=== PATIENT | female | born 1935 ===

== ENCOUNTER 2017-11-14 11:38 | Inpatient (IN) | payer MEDICARE, BC ==
--- NOTE | 2017-11-14 11:50 | EDM.PDOC ---
ED HPI GENERAL MEDICAL PROBLEM - General Chief Complaint: Lower Extremity Injury/Pain Stated Complaint: [facility] Time Seen by Provider: 11/14/17 11:50 Source of Information: Reports: Patient - History of Present Illness INITIAL COMMENTS - FREE TEXT/NARRATIVE: Patient is brought here today by ambulance from [facility] for an unwitnessed fall. She was found on the ground, she is unable to bear weight and does walk a bit typically. She is grabbing her left hip. Patient has had a history of frequent falls. She has a history of significant dementia, history of heart disease. Patient was given 0.5 mg of Dilaudid in route by ambulance. Treatments STENOGRAPHIC COURT REPORTER: Reports: Other (see below) Other Treatments STENOGRAPHIC COURT REPORTER: dilaudid 0.50 Left Hip Pain Score (Numeric/FACES): 9 - Related Data Allergies Allergy/AdvReac Type Severity Reaction Status Date / Time alendronate sodium Allergy Cannot Verified 11/14/17 11:54 [From Fosamax] Remember atorvastatin [From Lipitor] Allergy Cannot Verified 11/14/17 11:54 Remember fluvastatin [From Lescol] Allergy Cannot Verified 11/14/17 11:54 Remember simvastatin [From Zocor] Allergy Cannot Verified 11/14/17 11:54 Remember Home Meds: Home Meds ARIPiprazole [Abilify] 12.5 mg PO BEDTIME 11/14/17 [History] Acetaminophen 650 mg PO TID PRN 11/14/17 [History] Bisacodyl [Dulcolax] 10 mg RC DAILY PRN 11/14/17 [History] Calcium Carbonate [Antacid] 200 mg PO Q4H PRN 11/14/17 [History] Celecoxib [CeleBREX] 200 mg PO DAILY 11/14/17 [History] Docusate Sodium/Sennosides [Senna Plus] 1 tab PO DAILY PRN 11/14/17 [History] Furosemide 80 mg PO DAILY 11/14/17 [History] Isosorbide Mononitrate [Imdur] 15 mg PO DAILY 11/14/17 [History] traMADol [Ultram] 50 mg PO BID 11/14/17 [History] Review of Systems - Review of Systems Review Of Systems: See Below Constitutional: Reports: No Symptoms Respiratory: Reports: No Symptoms Cardiovascular: Reports: No Symptoms Musculoskeletal: Reports: Other (Apparent left hip pain. Review of systems is very difficult due to patient's dementia.) Skin: Reports: No Symptoms Psychiatric: Reports: Confusion ED EXAM, GENERAL - Physical Exam Exam: See Below Exam Limited By: Other (Dementia) General Appearance: Alert Respiratory/Chest: No Respiratory Distress, Lungs Clear, Normal Breath Sounds, No Accessory Muscle Use Cardiovascular: Normal Peripheral Pulses, No Murmur Peripheral Pulses: 2+: Posterior Tibial (L), Posterior Tibial (R) Extremities: Normal Capillary Refill, Other (Patient's left lower extremity is externally rotated and shorter in length versus the right.) Neurological: Alert, Other (Significant dementia). No: Oriented, No Motor/ Sensory Deficits Skin Exam: Warm, Dry, Intact EKG INTERPRETATION EKG Date: 11/14/17 Time: 12:00 Rhythm: NSR Rate (Beats/Min): 66 EKG Interpretation Comments: Reviewed with Dr. Reyna Course - Vital Signs Last Recorded V/S: Last Vital Signs Temp 98.5 F 11/14/17 11:44 Pulse 66 11/14/17 11:44 Resp 17 11/14/17 11:44 BP 144/67 H 11/14/17 11:44 Pulse Ox 98 11/14/17 11:44 - Orders/Labs/Meds Orders: Active Orders 24 hr Category Date Time Status EKG 12 Lead [EKG Documentation Completion] [RC] STAT Care 11/14/17 11:54 Active CXR [Chest 2V] [CR] Stat Exams 11/14/17 11:54 Taken Hip Min 1V w Pelvis Lt [CR] Stat Exams 11/14/17 11:54 Taken Sodium Chloride 0.9% [Normal Saline] 1,000 ml Med 11/14/17 11:56 Active IV ONETIME Medication Orders Sodium Chloride (Normal Saline) 1,000 mls @ 250 mls/hr IV ONETIME ONE Stop: 11/14/17 15:55 Last Admin: 11/14/17 12:06 Dose: 250 mls/hr Labs: Laboratory Tests 11/14/17 11/14/17 11/14/17 Range/Units 12:27 12:27 12:27 WBC 9.28 (3.98-10.04) K/mm3 RBC 4.64 (3.98-5.22) M/mm3 Hgb 13.6 (11.2-15.7) gm/L Hct 42.2 (34.1-44.9) % MCV 90.9 (79.4-94.8) fl MCH 29.3 (25.6-32.2) pg MCHC 32.2 (32.2-35.5) g/dl RDW Std Deviation 46.7 H (36.4-46.3) fL Plt Count 246 (182-369) K/mm3 MPV 10.6 (9.4-12.3) fl Neutrophils % (Manual) 71 H (40-60) % Band Neutrophils % 0 (0-10) % Lymphocytes % (Manual) 22 (20-40) % Atypical Lymphs % 0 % Monocytes % (Manual) 5 (2-10) % Eosinophils % (Manual) 0 L (0.7-5.8) % Basophils % (Manual) 2 H (0.1-1.2) Platelet Estimate Adequate RBC Morph Comment Normal Sodium 144 (136-145) mEq/L Potassium 3.6 (3.5-5.1) mEq/L Chloride 107 (98-107) mEq/L Carbon Dioxide 27 (21-32) mEq/L Anion Gap 13.6 (5-15) BUN 27 H (7-18) mg/dL Creatinine 0.7 (0.55-1.02) mg/dL Est Cr Clr Drug Dosing 49.65 mL/min Estimated GFR (MDRD) > 60 (>60) mL/min BUN/Creatinine Ratio 38.6 H (14-18) Glucose 141 H (83-115) mg/dL Calcium 9.6 (8.5-10.1) mg/dL Total Bilirubin 0.8 (0.2-1.0) mg/dL AST 28 (15-37) U/L ALT 35 (14-59) U/L Alkaline Phosphatase 72 (46-116) U/L Total Protein 7.2 (6.4-8.2) g/dl Albumin 4.1 (3.4-5.0) g/dl Globulin 3.1 gm/dL Albumin/Globulin Ratio 1.3 (1-2) Blood Type A POSITIVE Gel Antibody Screen Negative Meds: Medications Generic Name Dose Route Start Last Admin Trade Name Freq PRN Reason Stop Dose Admin Sodium Chloride 1,000 mls @ 250 mls/hr 11/14/17 11:56 11/14/17 12:06 Normal Saline IV 11/14/17 15:55 250 mls/hr ONETIME ONE Administration Discontinued Medications Generic Name Dose Route Start Last Admin Trade Name Mina PRN Reason Stop Dose Admin Hydromorphone HCl 0.5 mg 11/14/17 11:56 11/14/17 12:04 Dilaudid IVPUSH 11/14/17 11:57 0.5 mg ONETIME ONE Administration - Re-Assessments/Exams Free Text/Narrative Re-Assessment/Exam: Patient with acute left hip fracture. I did explain this to her, however her dementia is quite significant so daughter was contacted as well. EKG is normal sinus rhythm. Chest x-ray demonstrates no obvious infiltrates, official radiology report is pending. CBC/CMP are unremarkable. Patient is A positive blood type. Discussed with Dr. Romo, we will consult in the hospital and discussed with her options at that time. With patient's core morbidities of dementia and CAD patient will be admitted to hospitalist service, discussed with Dr. Browne. Discussed on the phone with patient's daughter, Salome, she can be reached at . Per patient's daughter and records from [facility] she is DNR status. 11/14/17 13:30 11/14/17 13:33 11/14/17 13:42 Departure - Departure Time of Disposition: 13:41 Disposition: Admitted As Inpatient 67 Condition: Fair Clinical Impression: Hip fracture, left Qualifiers: Encounter type: initial encounter Fracture type: closed Qualified Code(s): S72.002A - Fracture of unspecified part of neck of left femur, initial encounter for closed fracture CAD (coronary artery disease) Qualifiers: Coronary Disease-Associated Artery/Lesion type: [place] artery [place] vs. transplanted heart: [place] heart Associated angina: without angina Qualified Code(s): I25.10 - Atherosclerotic heart disease of [place] coronary artery without angina pectoris Dementia Qualifiers: Dementia type: unspecified type - Discharge Information Referrals: PCP,None [Primary Care Provider] - Forms: ED Department Discharge - My Orders Last 24 Hours: My Active Orders 11/14/17 11:54 EKG 12 Lead [EKG Documentation Completion] [RC] STAT CXR [Chest 2V] [CR] Stat Hip Min 1V w Pelvis Lt [CR] Stat 11/14/17 11:56 Sodium Chloride 0.9% [Normal Saline] 1,000 ml IV ONETIME - Assessment/Plan Last 24 Hours: My Active Orders 11/14/17 11:54 EKG 12 Lead [EKG Documentation Completion] [RC] STAT CXR [Chest 2V] [CR] Stat Hip Min 1V w Pelvis Lt [CR] Stat 11/14/17 11:56 Sodium Chloride 0.9% [Normal Saline] 1,000 ml IV ONETIME
[2017-11-14] MEDS ORDERED: Sodium Chloride 0.9% 1,000 ML IV ONE (11:56)
[2017-11-14] MEDS ORDERED: HYDROmorphone 0.5 MG/0.5 ML Syringe IVPUSH ONE (11:56)
--- NOTE | 2017-11-14 14:27 | CR ---
Pelvis and left hip: AP view of the pelvis was obtained as well as lateral view of the left hip. Varus angulated intertrochanteric fracture is seen within the left hip. Joint space narrowing is seen superiorly within both hips. Bony structures are osteopenic. No other acute abnormality is seen. Impression: 1. Left hip fracture as described above. 2. Osteopenia and degenerative change as noted above. Diagnostic code #3
--- NOTE | 2017-11-14 14:27 | CR ---
Chest: AP view of the chest was obtained as well as lateral study. Comparison: No previous study. Heart is enlarged. Lungs are clear. Kyphoscoliosis is present within the spine. Degenerative change is noted within the spine. Osteopenia is seen. Impression: 1. Multiple findings as noted above. Nothing acute is seen on two-view chest x-ray. Diagnostic code #2
[2017-11-14] MEDS ORDERED: Acetaminophen 325 MG Tab PO PRN (15:51)
[2017-11-14] MEDS ORDERED: Morphine 2 MG/ML Syringe IVPUSH PRN (15:51)
[2017-11-14] MEDS ORDERED: Bisacodyl 5 MG Tab PO PRN (15:51)
[2017-11-14] MEDS ORDERED: Docusate Sodium 100 MG Cap PO PRN (15:51)
[2017-11-14] MEDS ORDERED: Albuterol/Ipratropium 3.0-0.5 MG/3 ML Neb Soln NEB PRN (15:51)
[2017-11-14] MEDS ORDERED: Polyethylene Glycol 3350 Powder 17 GM Packet PO PRN (15:51)
[2017-11-14] MEDS ORDERED: Ondansetron 4 MG/2 ML SDV IV PRN (15:51)
[2017-11-14] MEDS ORDERED: Ondansetron 4 MG Tab.DIS PO PRN (15:51)
[2017-11-14] MEDS ORDERED: Sodium Chloride 0.9% 1,000 ML IV SCH (16:00)
--- NOTE | 2017-11-14 16:00 | PCM.HP ---
H&P History of Present Illness - General Date of Service: 11/14/17 Admit Problem/Dx: Admission Diagnosis/Problem Admission Diagnosis/Problem Hip fracture requiring operative repair Source of Information: Correction Records, Old Records, Provider, RN, RN Notes Reviewed History Limitations: Reports: Altered Mental Status (Dementia) - History of Present Illness Initial Comments - Free Text/Narative: Lindsay Diaz is an 82 yo female who resides to ED today (11/14/17) via ambulance from [facility]. Patient had an unwitnessed fall and is now unable to bear weight. She does typically walk around the [facility], however now she is grabbing her left hip pain. No history of recurrent falls. She has history of dementia and heart disease. EMS gave 0.5 mg Dilaudid prior to ED arrival. In the ER a 12-lead was obtained showing normal sinus rhythm at 66 beats or minute, interpreted by the ED provider. Temp is 98.5. Pulse 66. Respirations 17. Blood pressure 144/67. Pulse ox 98 percent on room air. Labs were obtained: FVC is normal at 9.28. Hemoglobin normal at 13.6. Hematocrit 42.2. Platelets normal at 246,000. Neutrophils are elevated at 71%. There is no bandemia. She was normocytic. Sodium was normal at 144. Potassium 3.6. Chloride 107. Carbon dioxide 27. Anion gap 13.6. BUN is elevated at 27. Creatinine 0.7. EGFR greater than 60. Glucose was elevated at 141. Calcium 9.6. Bilirubin 0.8. Liver enzymes looked good with AST at 28, ALT at 35, alkaline phosphatase 72. Albumin was good at 4.1. She was typed and screened with a blood type A positive gel antibody screen negative. Hip x-ray was obtained and interpreted by Dr. De Los Santos as varus angulated intertrochanteric fracture is seen within the left hip. Joint space narrowing is seen superiorly within both hips. Only structures are osteopenic. No other acute abnormalities seen. Dr. Romo was consulted in the ED. He requested patient be admitted to the hospitalist service and he will see the patient on the floor. She does have a daughter who did not come in but can be reached via cell phone at [phone]. She carries a history of CAD, osteoarthritis, Alzheimer's dementia, bipolar disorder, generalized muscle weakness, lower extremity edema, constipation, and insomnia. She is a DNR. This is confirmed with [facility] records and the patient's daughter. She subsequently admitted to the medical floor. Left Hip Pain Score (Numeric/FACES): 9 - Related Data Allergies/Adverse Reactions: Allergies Allergy/AdvReac Type Severity Reaction Status Date / Time alendronate sodium Allergy Cannot Verified 11/14/17 11:54 [From Fosamax] Remember atorvastatin [From Lipitor] Allergy Cannot Verified 11/14/17 11:54 Remember fluvastatin [From Lescol] Allergy Cannot Verified 11/14/17 11:54 Remember simvastatin [From Zocor] Allergy Cannot Verified 11/14/17 11:54 Remember Home Medications: Home Meds ARIPiprazole [Abilify] 12.5 mg PO BEDTIME 11/14/17 [History] Acetaminophen 650 mg PO TID PRN 11/14/17 [History] Bisacodyl [Dulcolax] 10 mg RC DAILY PRN 11/14/17 [History] Celecoxib [CeleBREX] 200 mg PO DAILY 11/14/17 [History] Docusate Sodium/Sennosides [Senna Plus] 1 tab PO DAILY PRN 11/14/17 [History] Furosemide 80 mg PO DAILY 11/14/17 [History] Isosorbide Mononitrate [Imdur] 15 mg PO DAILY 11/14/17 [History] Mag Hydrox/Al Hydrox/Simeth [Maalox Maximum Strength Susp] 15 ml PO Q4HR PRN 08/22 [History] traMADol [Ultram] 50 mg PO BID 11/14/17 [History] Past Medical History Cardiovascular History: Reports: Other (See Below) Other Cardiovascular History: atherpsclerotic heart disease of [place] coronary artery Musculoskeletal History: Reports: Osteoarthritis, Other (See Below) Other Musculoskeletal History: chronic right foot pain, generalized muscle weakness Neurological History: Reports: Alzheimers Disease Psychiatric History: Reports: Bipolar, Dementia, Other (See Below) Other Psychiatric History: insomnia, personality disorder Social & Family History - Tobacco Use Smoking Status *Q: Never Smoker Second Hand Smoke Exposure: No - Caffeine Use Caffeine Use: Reports: Coffee - Recreational Drug Use Recreational Drug Use: No H&P Review of Systems - Review of Systems: Review Of Systems: Unable To Obtain Free Text/Narrative: Patient is severely demented and ROS is unable to be obtained with any degree of certainty. In reviewing ER notes She has baseline severe confusion and left hip pain. Exam - Exam Exam: See Below - Vital Signs Vital Signs: Last Vital Signs Temp 99.3 F 11/14/17 15:46 Pulse 67 11/14/17 15:46 Resp 17 11/14/17 15:46 BP 118/60 11/14/17 15:46 Pulse Ox 95 11/14/17 15:46 Weight: 110 lb - Exam Quality Assessment: DVT Prophylaxis General: Alert, Cooperative. No: Mild Distress HEENT: PERRLA, Hearing Intact, Mucosa Moist & [place], Nares Patent, Normal Nasal Septum, Posterior Pharynx Clear, Conjunctiva Clear, EOMI, EACs Clear, TMs Clear Neck: Supple, Trachea Midline. No: JVD, Thyromegaly Lungs: Clear to Auscultation, Normal Respiratory Effort Cardiovascular: Regular Rate, Regular Rhythm GI/Abdominal Exam: Normal Bowel Sounds, Soft, Non-Tender, No Organomegaly, No Distention, No Abnormal Bruit, No Mass, Pelvis Stable (Female) Exam: Deferred Rectal (Female) Exam: Deferred Back Exam: Normal Inspection, Decreased Range of Motion Extremities: Normal Capillary Refill, Pedal Edema (1+ bilateral ), Leg Pain ( left hip), Limited Range of Motion, Other (left leg is shortened and externally rotated. ) Peripheral Pulses: 2+: Radial (L), Radial (R), Posterior Tibial (L), Posterior Tibial (R), Dorsalis Pedis (L), Dorsalis Pedis (R) Skin: Warm, Dry, Intact Neuro Extensive - Mental Status: Alert, Other (significanty dimentia ). No: Oriented x3, Normal Cognition, Memory Intact Neuro Extensive - Motor, Sensory, Reflexes: CN II-XII Intact (grossly ), Normal Gait, Abnormal Gait Psychiatric: Alert - Patient Data Result Diagrams: 11/14/17 12:27 11/14/17 12:27 *Q Meaningful Use (ADM) - VTE *Q VTE Criteria *Q: - Stroke *Q Stroke Criteria *Q: - AMI *Q AMI Criteria *Q: - Problem List (1) Hip fracture, left SNOMED Code(s): 599790626 ICD Code: S72.002A - FRACTURE OF UNSP PART OF NECK OF LEFT FEMUR, INIT Status: Acute Priority: High Current Visit: Yes Qualifiers: Encounter type: initial encounter Fracture type: closed Qualified Code(s) : S72.002A - Fracture of unspecified part of neck of left femur, initial encounter for closed fracture (2) Dementia SNOMED Code(s): 98849176 ICD Code: F03.90 - UNSPECIFIED DEMENTIA WITHOUT BEHAVIORAL DISTURBANCE Status: Chronic Priority: High Current Visit: Yes Qualifiers: Dementia type: Alzheimer's disease Alzheimer's disease onset: unspecified onset Dementia behavioral disturbance: without behavioral disturbance Qualified Code(s): G30.9 - Alzheimer's disease, unspecified; F02.80 - Dementia in other diseases classified elsewhere without behavioral disturbance; F02.80 - Dementia in other diseases classified elsewhere without behavioral disturbance; F02.80 - Dementia in other diseases classified elsewhere without behavioral disturbance (3) Insomnia SNOMED Code(s): 384739096 ICD Code: G47.00 - INSOMNIA, UNSPECIFIED Status: Chronic Priority: Low Current Visit: No Qualifiers: Insomnia type: unspecified Qualified Code(s): G47.00 - Insomnia, unspecified (4) Personality disorder SNOMED Code(s): 88002949 ICD Code: F60.9 - PERSONALITY DISORDER, UNSPECIFIED Status: Chronic Priority: Low Current Visit: No (5) Bipolar disorder SNOMED Code(s): 29188933 ICD Code: F31.9 - BIPOLAR DISORDER, UNSPECIFIED Status: Chronic Priority : Low Current Visit: No Qualifiers: Active/Remission status: remission status unspecified Qualified Code(s): F31.9 - Bipolar disorder, unspecified (6) Osteoarthritis SNOMED Code(s): 726314086 ICD Code: M19.90 - UNSPECIFIED OSTEOARTHRITIS, UNSPECIFIED SITE Status: Chronic Priority: Low Current Visit: No Qualifiers: Osteoarthritis location: hip Osteoarthritis type: primary Laterality: bilateral Qualified Code(s): M16.0 - Bilateral primary osteoarthritis of hip (7) Lower extremity edema SNOMED Code(s): 780104392 ICD Code: R60.0 - LOCALIZED EDEMA Status: Chronic Priority: Medium Current Visit: Yes (8) CAD (coronary artery disease) SNOMED Code(s): 45475724 ICD Code: I25.10 - ATHSCL HEART DISEASE OF [place] CORONARY ARTERY W/O ANG PCTRS Status: Chronic Priority: Low Current Visit: No Qualifiers: Coronary Disease-Associated Artery/Lesion type: [place] artery [place] vs. transplanted heart: [place] heart Associated angina: without angina Qualified Code(s): I25.10 - Atherosclerotic heart disease of [place] coronary artery without angina pectoris Problem List Initiated/Reviewed/Updated: Yes Orders Last 24hrs: Active Orders 24 hr Category Date Time Status Antiembolic Devices [RC] PER UNIT ROUTINE Care 11/14/17 15:54 Ordered Bedrest Bathroom Privileges [RC] ASDIRECTED Care 11/14/17 15:51 Ordered Height and Weight [RC] DAILY Care 11/14/17 15:51 Ordered Intake and Output [RC] QSHIFT Care 11/14/17 15:52 Ordered Notify Provider Consults [RC] ASDIRECTED Care 11/14/17 15:56 Ordered Oxygen Therapy [RC] PRN Care 11/14/17 15:51 Ordered Pulse Oximetry [RC] PRN Care 11/14/17 15:52 Ordered RT Aerosol Therapy [RC] ASDIRECTED Care 11/14/17 15:56 Ordered VTE/DVT Education [RC] PER UNIT ROUTINE Care 11/14/17 15:51 Ordered Vital Signs [RC] Q4H Care 11/14/17 15:51 Ordered Consult to Case Management [CONS] Routine Cons 11/14/17 15:51 Ordered Consult to Physician [CONS] Routine Cons 11/14/17 15:51 Ordered Consult to Public Address Announcer [CONS] Routine Cons 11/14/17 15:51 Ordered Consult to Spiritual Care [CONS] Routine Cons 11/14/17 15:51 Ordered OT Evaluation and Treatment [CONS] Routine Cons 11/14/17 15:51 Ordered PT Evaluation and Treatment [CONS] Routine Cons 11/14/17 15:51 Ordered NPO Now [Nothing per Oral Now Diet] [DIET] Diet 11/14/17 Dinner Ordered Acetaminophen [Tylenol] Med 11/14/17 15:51 Ordered 650 mg PO Q4H PRN Acetaminophen/oxyCODONE [Percocet 325-5 MG] Med 11/14/17 15:51 Ordered 1 tab PO Q4H PRN Albuterol/Ipratropium [DuoNeb 3.0-0.5 MG/3 ML] Med 11/14/17 15:51 Ordered 3 ml NEB Q4H PRN Bisacodyl [Dulcolax] Med 11/14/17 15:51 Ordered 5 mg PO DAILY PRN Docusate Sodium [Colace] Med 11/14/17 15:51 Ordered 100 mg PO BID PRN Docusate Sodium/Sennosides [Senna Plus] Med 11/14/17 15:51 Ordered 1 tab PO BID PRN Morphine Med 11/14/17 15:51 Ordered 2 mg IVPUSH Q2H PRN Ondansetron [Zofran ODT] Med 11/14/17 15:51 Ordered 4 mg PO Q6H PRN Ondansetron [Zofran] Med 11/14/17 15:51 Ordered 4 mg IV Q6H PRN Polyethylene Glycol 3350 [MiraLAX] Med 11/14/17 15:51 Ordered 17 gm PO DAILY PRN Sodium Chloride 0.9% [Normal Saline] 1,000 ml Med 11/14/17 16:00 Ordered IV ASDIRECTED Sequential Compression Device [OM.PC] Per Unit Routine Oth 11/14/17 15:52 Ordered Resuscitation Status Routine Resus Stat 11/14/17 15:51 Ordered Medication Orders Acetaminophen (Tylenol) 650 mg PO Q4H PRN PRN Reason: Pain (Mild 1-3)/fever Albuterol/Ipratropium (Duoneb 3.0-0.5 Mg/3 Ml) 3 ml NEB Q4H PRN PRN Reason: Shortness Of Breath/wheezing Bisacodyl (Dulcolax) 5 mg PO DAILY PRN PRN Reason: Constipation Docusate Sodium (Colace) 100 mg PO BID PRN PRN Reason: Constipation Sodium Chloride (Normal Saline) 1,000 mls @ 75 mls/hr IV ASDIRECTED [facility] Stop: 11/15/17 05:19 Morphine Sulfate (Morphine) 2 mg IVPUSH Q2H PRN PRN Reason: Pain (severe 7-10) Stop: 11/15/17 15:54 Ondansetron HCl (Zofran Odt) 4 mg PO Q6H PRN PRN Reason: nausea, able to take PO Ondansetron HCl (Zofran) 4 mg IV Q6H PRN PRN Reason: Nausea/Vomiting Oxycodone/Acetaminophen (Percocet 325-5 Mg) 1 tab PO Q4H PRN PRN Reason: Pain (moderate 4-6) Polyethylene Glycol (Miralax) 17 gm PO DAILY PRN PRN Reason: Constipation Senna/Docusate Sodium (Senna Plus) 1 tab PO BID PRN PRN Reason: Constipation Assessment/Plan Comment:: I/P Acute: Varus angulated intertrochanteric fracture within the left hip - 2/2 unwitnessed fall at [facility] - Fall Precautions - hx/o recurrent falls - She is reportedly somewhat ambulatory at [facility] - Planned surgical correction by Ortho (Dr. Vieira) tomorrow (11/15/17) - Pain medication as ordered Pre-Operative Risk Stratification - Risk factors: Advanced dementia, CAD, Bipolar disorder - METS < 4, SVS, Ekg /CXR: benign - Physical exam fairly benign - No recent cardiac or lung eval in chart - No active cardiac or lung disease - Non-smoker, Non-drinker - Based on the data provided, the patient carries mild-moderate cardiac risk for intermediate surgical risk Chronic: CAD Alzheimer dementia -stable Bipolar disorder - stable OA Insomnia Personality disorder - stable Lower extremity edema - bumex Generalized muscle weakness Plan: Routine AM labs PT/PTT PT/OT consult IS q2 awake after surgery if patient can complete PPI for GI ppx DVT ppx and Post-operative Pain Management: as per primary team Code status: DNR Her PCP is Dr. Jama at [facility] in [place]
[2017-11-14] MEDS ORDERED: Furosemide 40 MG/4 ML VIAL IVPUSH ONE (16:16)
--- NOTE | 2017-11-14 17:20 | PCM.PREANE ---
Preanesthetic Assessment - Anesthesia/Transfusion/Family Hx Anesthesia History: Prior Anesthesia Without Reaction Family History of Anesthesia Reaction: No Transfusion History: No Prior Transfusion(s) - Review of Systems General: No Symptoms Pulmonary: No Symptoms Cardiovascular: No Symptoms Gastrointestinal: No Symptoms Neurological: Confusion, Difficulty Walking (falling), Weakness Other: Reports: None - Physical Assessment NPO Status Date: 11/14/17 NPO Status Time: 17:00 Pulse: 67 O2 Sat by Pulse Oximetry: 95 Respiratory Rate: 17 Blood Pressure: 118/60 Temperature: 37.4 C Vital Signs: Last Vital Signs Temp 37.4 C 11/14/17 15:46 Pulse 67 11/14/17 15:46 Resp 17 11/14/17 15:46 BP 118/60 11/14/17 15:46 Pulse Ox 95 11/14/17 15:51 Height: 1.6 m Weight: 49.895 kg ASA Class: 3 Mental Status: Other (dementia) Airway Class: Mallampati = 2 Dentition: Reports: Dentures Thyro-Mental Finger Breadths: 2 Mouth Opening Finger Breadths: 2 ROM/Head Extension: Limited/Partial Lungs: Clear to Auscultation, Normal Respiratory Effort Cardiovascular: Regular Rhythm, Irregular Rhythm - Lab Values: Laboratory Last Values WBC 9.28 K/mm3 (3.98-10.04) 11/14/17 12:27 RBC 4.64 M/mm3 (3.98-5.22) 11/14/17 12:27 Hgb 13.6 gm/L (11.2-15.7) 11/14/17 12:27 Hct 42.2 % (34.1-44.9) 11/14/17 12:27 MCV 90.9 fl (79.4-94.8) 11/14/17 12:27 MCH 29.3 pg (25.6-32.2) 11/14/17 12:27 MCHC 32.2 g/dl (32.2-35.5) 11/14/17 12:27 RDW Std Deviation 46.7 fL (36.4-46.3) H 11/14/17 12:27 Plt Count 246 K/mm3 (182-369) 11/14/17 12:27 MPV 10.6 fl (9.4-12.3) 11/14/17 12:27 Neutrophils % (Manual) 71 % (40-60) H 11/14/17 12:27 Band Neutrophils % 0 % (0-10) 11/14/17 12:27 Lymphocytes % (Manual) 22 % (20-40) 11/14/17 12:27 Atypical Lymphs % 0 % 11/14/17 12:27 Monocytes % (Manual) 5 % (2-10) 11/14/17 12:27 Eosinophils % (Manual) 0 % (0.7-5.8) L 11/14/17 12:27 Basophils % (Manual) 2 (0.1-1.2) H 11/14/17 12:27 Platelet Estimate Adequate 11/14/17 12: RBC Morph Comment Normal 11/14/17 12:27 Sodium 144 mEq/L (136-145) 11/14/17 12:27 Potassium 3.6 mEq/L (3.5-5.1) 11/14/17 12:27 Chloride 107 mEq/L (98-107) 11/14/17 12:27 Carbon Dioxide 27 mEq/L (21-32) 11/14/17 12:27 Anion Gap 13.6 (5-15) 11/14/17 12:27 BUN 27 mg/dL (7-18) H 11/14/17 12:27 Creatinine 0.7 mg/dL (0.55-1.02) 11/14/17 12:27 Est Cr Clr Drug Dosing 49.65 mL/min 11/14/17 12:27 Estimated GFR (MDRD) > 60 mL/min (>60) 11/14/17 12:27 BUN/Creatinine Ratio 38.6 (14-18) H 11/14/17 12:27 Glucose 141 mg/dL (83-115) H 11/14/17 12:27 Calcium 9.6 mg/dL (8.5-10.1) 11/14/17 12:27 Total Bilirubin 0.8 mg/dL (0.2-1.0) 11/14/17 12:27 AST 28 U/L (15-37) 11/14/17 12:27 ALT 35 U/L (14-59) 11/14/17 12:27 Alkaline Phosphatase 72 U/L (46-116) 11/14/17 12:27 Total Protein 7.2 g/dl (6.4-8.2) 11/14/17 12:27 Albumin 4.1 g/dl (3.4-5.0) 11/14/17 12:27 Globulin 3.1 gm/dL 11/14/17 12:27 Albumin/Globulin Ratio 1.3 (1-2) 11/14/17 12:27 Blood Type A POSITIVE 11/14/17 12:27 Gel Antibody Screen Negative 11/14/17 12:27 - Imaging/EKG Impressions: EKG 11/14/2017 AFib rate 64 - 69 - Allergies Allergies/Adverse Reactions: Allergies Allergy/AdvReac Type Severity Reaction Status Date / Time alendronate sodium Allergy Cannot Verified 11/14/17 11:54 [From Fosamax] Remember atorvastatin [From Lipitor] Allergy Cannot Verified 11/14/17 11:54 Remember fluvastatin [From Lescol] Allergy Cannot Verified 11/14/17 11:54 Remember simvastatin [From Zocor] Allergy Cannot Verified 11/14/17 11:54 Remember - Anesthesia Plan Pre-Op Medication Ordered: None - Acknowledgements Anesthesia Type Planned: Spinal Pt an Appropriate Candidate for the Planned Anesthesia: Yes Alternatives and Risks of Anesthesia Discussed w Pt/Guardian: Yes Pt/Guardian Understands and Agrees with Anesthesia Plan: Yes PreAnesthesia Questionnaire Cardiovascular History: Reports: Other (See Below) Other Cardiovascular History: 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 Musculoskeletal History: Reports: Osteoarthritis, Other (See Below) Other Musculoskeletal History: chronic right foot pain, generalized muscle weakness Neurological History: Reports: Alzheimers Disease Psychiatric History: Reports: Bipolar, Dementia, Other (See Below) Other Psychiatric History: insomnia, personality disorder - SUBSTANCE USE Smoking Status *Q: Never Smoker Tobacco Use Within Last Twelve Months: No Second Hand Smoke Exposure: No Recreational Drug Use History: No - HOME MEDS Home Medications: Home Meds ARIPiprazole [Abilify] 12.5 mg PO BEDTIME 11/14/17 [History] Acetaminophen 650 mg PO TID PRN 11/14/17 [History] Bisacodyl [Dulcolax] 10 mg RC DAILY PRN 11/14/17 [History] Calcium Carbonate [Antacid] 200 mg PO Q4H PRN 11/14/17 [History] Celecoxib [CeleBREX] 200 mg PO DAILY 11/14/17 [History] Docusate Sodium/Sennosides [Senna Plus] 1 tab PO DAILY PRN 11/14/17 [History] Furosemide 80 mg PO DAILY 11/14/17 [History] Isosorbide Mononitrate [Imdur] 15 mg PO DAILY 11/14/17 [History] traMADol [Ultram] 50 mg PO BID 11/14/17 [History] - CURRENT (IN HOUSE) MEDS Current Meds: Current Medications Acetaminophen (Tylenol) 650 mg PO Q4H PRN PRN Reason: Pain (Mild 1-3)/fever Albuterol/Ipratropium (Duoneb 3.0-0.5 Mg/3 Ml) 3 ml NEB Q4H PRN PRN Reason: Shortness Of Breath/wheezing Bisacodyl (Dulcolax) 5 mg PO DAILY PRN PRN Reason: Constipation Docusate Sodium (Colace) 100 mg PO BID PRN PRN Reason: Constipation Morphine Sulfate (Morphine) 2 mg IVPUSH Q2H PRN PRN Reason: Pain (severe 7-10) Stop: 11/15/17 15:54 Ondansetron HCl (Zofran Odt) 4 mg PO Q6H PRN PRN Reason: nausea, able to take PO Ondansetron HCl (Zofran) 4 mg IV Q6H PRN PRN Reason: Nausea/Vomiting Oxycodone/Acetaminophen (Percocet 325-5 Mg) 1 tab PO Q4H PRN PRN Reason: Pain (moderate 4-6) Polyethylene Glycol (Miralax) 17 gm PO DAILY PRN PRN Reason: Constipation Senna/Docusate Sodium (Senna Plus) 1 tab PO BID PRN PRN Reason: Constipation Discontinued Medications Furosemide (Lasix) 40 mg IVPUSH NOW ONE Stop: 11/14/17 16:17 Last Admin: 11/14/17 16:52 Dose: 40 mg Hydromorphone HCl (Dilaudid) 0.5 mg IVPUSH ONETIME ONE Stop: 11/14/17 11:57 Last Admin: 11/14/17 12:04 Dose: 0.5 mg Sodium Chloride (Normal Saline) 1,000 mls @ 250 mls/hr IV ONETIME ONE Stop: 11/14/17 15:55 Last Admin: 11/14/17 12:06 Dose: 250 mls/hr Sodium Chloride (Normal Saline) 1,000 mls @ 75 mls/hr IV ASDIRECTED [facility] Stop: 11/15/17 05:19
[2017-11-14] MEDS: Acetaminophen/oxyCODONE 325-5 MG Tab PO PRN (21:37)
[2017-11-14] MEDS: traMADol 50 MG Tab PO SCH (21:39)
[2017-11-14] MEDS: Famotidine 20 MG Tab PO SCH (21:40)
[2017-11-14] MEDS: ARIPiprazole 10 MG Tab PO SCH (21:40)
[2017-11-14] MEDS: Mupirocin Oint 22 GM Tube SCH (22:17)
[2017-11-15] MEDS: Bumetanide 1 MG/4 ML MDV IVPUSH SCH ×2 (06:15→09:20)
--- NOTE | 2017-11-15 06:48 | CONS ---
CONSULTING PHYSICIAN: Sedrick Vieira MD DATE OF CONSULTATION: 11/14/2017 HISTORY OF PRESENT ILLNESS: This is the evaluation of a severe left hip pain secondary to a fall causing a fracture. The patient is seen through the emergency room, was found to have severe pain with external rotation of the left hip. The patient was brought to the emergency room by ambulance from the [facility]. The fall was not seen, and the patient had severe pain with any type of ability to try to walk or move the leg itself. She does have a history of frequent falls. ALLERGIES: To alendronate, atorvastatin or Lipitor, Lescol, and Zocor. PAST MEDICAL HISTORY: The patient has a history of osteoporosis. She also notes a history of confusion at times. MEDICATIONS: The patient has been on a pain medicine of Ultram and also has been on the furosemide mg and anti-inflammatory Celebrex for the arthritis-type problems. REVIEW OF SYSTEMS: HEAD, EYES, EARS, NOSE, AND THROAT: The patient shows no indication of upper respiratory infection or signs of infection. NECK: Supple. CHEST: Clear. COR: Shows no changes at this point. MUSCULOSKELETAL: Shows positive severe pain of the left hip. SKIN: Intact. PHYSICAL EXAMINATION: GENERAL: On admission, the patient is a well-developed well-nourished 82-year- old female with dementia. She is fairly alert on direct examination. HEAD, EYES, EARS, NOSE AND THROAT: Normocephalic. NECK: Supple. CHEST: Clear. COR: Regular rate. ABDOMEN: Soft. : Intact. MUSCULOSKELETAL: Examination of the left hip reveals a severe pain or any type of movement of the left hip itself with external rotation of the hip noted and shortening. NEUROLOGICAL: The patient shows no specific motor or sensory deficits distally. IMAGING: The x-rays showed an intertrochanteric fracture of the left hip, moderately displaced. PLAN: 1. Plan will be for the patient to be scheduled for admission medically to undergo medical evaluation and stabilization. 2. Schedule for an open surgery, an open reduction and internal fixation of the left hip fracture with a gamma nail. MMHARRY /[id number]
[2017-11-15] MEDS: Sodium Chloride 0.9% 1,000 ML IV SCH (08:48)
[2017-11-15] MEDS: Potassium Chloride 10 MEQ in Premix Bag 1 BAG IV SCH ×5 (08:48→16:49)
[2017-11-15] MEDS ORDERED: Bumetanide 1 MG/4 ML MDV IVPUSH SCH (09:00)
[2017-11-15] MEDS: Celecoxib 100 MG Cap PO SCH (09:19)
[2017-11-15] MEDS: Famotidine 20 MG Tab PO SCH ×2 (09:19→20:08)
[2017-11-15] MEDS: traMADol 50 MG Tab PO SCH ×2 (09:20→20:06)
[2017-11-15] MEDS: Mupirocin Oint 22 GM Tube SCH ×2 (10:00→20:09)
--- NOTE | 2017-11-15 10:03 | PCM.PN ---
- General Info Date of Service: 11/15/17 Admission Dx/Problem (Free Text): Admission Diagnosis/Problem Admission Diagnosis/Problem Hip fracture requiring operative repair Lindsay is seen this morning. She is pleasantly confused. I introduce myself and she says "What is your name" with lots of jibberish talk. She is resting comfortably. Denies that her left hip is causing pain or discomfort. Functional Status: Reports: Pain Controlled, Urinating (ferreira). Denies: Tolerating Diet (NPO), Ambulating (bedrest), New Symptoms - Review of Systems General: Reports: Weakness Pulmonary: Denies: Shortness of Breath Cardiovascular: Denies: Chest Pain Gastrointestinal: Denies: Abdominal Pain Musculoskeletal: Reports: Leg Pain Systems Review Comment:: ROS difficult to obtain due to severe dementia baseline. - Patient Data Vitals - Most Recent: Last Vital Signs Temp 99.7 F 11/15/17 07:37 Pulse 66 11/15/17 07:37 Resp 17 11/15/17 07:37 BP 122/67 11/15/17 07:37 Pulse Ox 95 11/15/17 07:37 Weight - Most Recent: 139 lb I&O - Last 24 Hours: Intake & Output 11/14/17 11/15/17 11/15/17 22:59 06:59 14:59 Intake Total 99 Output Total 1900 Balance 99 -1900 Lab Results Last 24 Hours: Laboratory Results - last 24 hr 11/14/17 11/15/17 11/15/17 Range/Units 20:20 05:55 05:55 WBC 9.15 (3.98-10.04) K/mm3 RBC 4.43 (3.98-5.22) M/mm3 Hgb 12.6 (11.2-15.7) gm/L Hct 40.2 (34.1-44.9) % MCV 90.7 (79.4-94.8) fl MCH 28.4 (25.6-32.2) pg MCHC 31.3 L (32.2-35.5) g/dl RDW Std Deviation 45.9 (36.4-46.3) fL Plt Count 225 (182-369) K/mm3 MPV 11.0 (9.4-12.3) fl Neut % (Auto) 72.9 H (34.0-71.1) % Lymph % (Auto) 13.9 L (19.3-51.7) % [place] % (Auto) 11.6 (4.7-12.5) % Eos % (Auto) 1.2 (0.7-5.8) Baso % (Auto) 0.3 (0.1-1.2) % Neut # (Auto) 6.67 H (1.56-6.13) K/mm3 Lymph # (Auto) 1.27 (1.18-3.74) K/mm3 [place] # (Auto) 1.06 H (0.24-0.36) K/mm3 Eos # (Auto) 0.11 (0.04-0.36) K/mm3 Baso # (Auto) 0.03 (0.01-0.08) K/mm3 PT (8.0-13.0) SECONDS INR APTT (22-36) SECONDS Sodium 144 (136-145) mEq/L Potassium 2.9 L (3.5-5.1) mEq/L Chloride 105 (98-107) mEq/L Carbon Dioxide 31 (21-32) mEq/L Anion Gap 10.9 (5-15) BUN 19 H (7-18) mg/dL Creatinine 0.6 (0.55-1.02) mg/dL Est Cr Clr Drug Dosing 60.83 mL/min Estimated GFR (MDRD) > 60 (>60) mL/min BUN/Creatinine Ratio 31.7 H (14-18) Glucose 107 (83-115) mg/dL Calcium 8.8 (8.5-10.1) mg/dL Magnesium 2.2 (1.8-2.4) mg/dl NT-Pro-B Natriuret Pep 185 (0-450) pg/mL MRSA (PCR) Positive H 11/15/17 Range/Units 05:55 WBC (3.98-10.04) K/mm3 RBC (3.98-5.22) M/mm3 Hgb (11.2-15.7) gm/L Hct (34.1-44.9) % MCV (79.4-94.8) fl MCH (25.6-32.2) pg MCHC (32.2-35.5) g/dl RDW Std Deviation (36.4-46.3) fL Plt Count (182-369) K/mm3 MPV (9.4-12.3) fl Neut % (Auto) (34.0-71.1) % Lymph % (Auto) (19.3-51.7) % [place] % (Auto) (4.7-12.5) % Eos % (Auto) (0.7-5.8) Baso % (Auto) (0.1-1.2) % Neut # (Auto) (1.56-6.13) K/mm3 Lymph # (Auto) (1.18-3.74) K/mm3 [place] # (Auto) (0.24-0.36) K/mm3 Eos # (Auto) (0.04-0.36) K/mm3 Baso # (Auto) (0.01-0.08) K/mm3 PT 11.3 (8.0-13.0) SECONDS INR 1.03 APTT 28 (22-36) SECONDS Sodium (136-145) mEq/L Potassium (3.5-5.1) mEq/L Chloride (98-107) mEq/L Carbon Dioxide (21-32) mEq/L Anion Gap (5-15) BUN (7-18) mg/dL Creatinine (0.55-1.02) mg/dL Est Cr Clr Drug Dosing mL/min Estimated GFR (MDRD) (>60) mL/min BUN/Creatinine Ratio (14-18) Glucose (83-115) mg/dL Calcium (8.5-10.1) mg/dL Magnesium (1.8-2.4) mg/dl NT-Pro-B Natriuret Pep (0-450) pg/mL MRSA (PCR) Med Orders - Current: Current Medications Acetaminophen (Tylenol) 650 mg PO Q4H PRN PRN Reason: Pain (Mild 1-3)/fever Albuterol/Ipratropium (Duoneb 3.0-0.5 Mg/3 Ml) 3 ml NEB Q4H PRN PRN Reason: Shortness Of Breath/wheezing Aripiprazole (Abilify) 12.5 mg PO BEDTIME QUINTEN Last Admin: 11/14/17 21:40 Dose: 12.5 mg Bisacodyl (Dulcolax) 5 mg PO DAILY PRN PRN Reason: Constipation Bumetanide (Bumex) 0.5 mg IVPUSH BID [facility] Last Admin: 11/15/17 09:20 Dose: Not Given Celecoxib (Celebrex) 200 mg PO DAILY [facility] Last Admin: 11/15/17 09:19 Dose: Not Given Docusate Sodium (Colace) 100 mg PO BID PRN PRN Reason: Constipation Famotidine (Pepcid) 20 mg PO BID [facility] Last Admin: 11/15/17 09:19 Dose: Not Given Potassium Chloride 10 meq/ (Premix) 100 mls @ 100 mls/hr IV Q1H [facility] Stop: 11/15/17 14:14 Last Admin: 11/15/17 08:48 Dose: 100 mls/hr Sodium Chloride (Normal Saline) 1,000 mls @ 50 mls/hr IV ASDIRECTED [facility] Last Admin: 11/15/17 08:48 Dose: 50 mls/hr Isosorbide Mononitrate (Imdur) 15 mg PO DAILY [facility] Morphine Sulfate (Morphine) 2 mg IVPUSH Q2H PRN PRN Reason: Pain (severe 7-10) Stop: 11/15/17 15:54 Last Admin: 11/15/17 09:20 Dose: 2 mg Mupirocin (Bactroban Oint) 2 gm .XX BID [facility] Stop: 11/19/17 22:01 Last Admin: 11/14/17 22:17 Dose: 1 applic Ondansetron HCl (Zofran Odt) 4 mg PO Q6H PRN PRN Reason: nausea, able to take PO Ondansetron HCl (Zofran) 4 mg IV Q6H PRN PRN Reason: Nausea/Vomiting Oxycodone/Acetaminophen (Percocet 325-5 Mg) 1 tab PO Q4H PRN PRN Reason: Pain (moderate 4-6) Last Admin: 11/14/17 21:37 Dose: 1 tab Polyethylene Glycol (Miralax) 17 gm PO DAILY PRN PRN Reason: Constipation Senna/Docusate Sodium (Senna Plus) 1 tab PO BID PRN PRN Reason: Constipation Tramadol HCl (Ultram) 50 mg PO BID [facility] Last Admin: 11/15/17 09:20 Dose: Not Given Discontinued Medications Bumetanide (Bumex) 0.5 mg IVPUSH DAILY [facility] Furosemide (Lasix) 40 mg IVPUSH NOW ONE Stop: 11/14/17 16:17 Last Admin: 11/14/17 16:52 Dose: 40 mg Hydromorphone HCl (Dilaudid) 0.5 mg IVPUSH ONETIME ONE Stop: 11/14/17 11:57 Last Admin: 11/14/17 12:04 Dose: 0.5 mg Sodium Chloride (Normal Saline) 1,000 mls @ 250 mls/hr IV ONETIME ONE Stop: 11/14/17 15:55 Last Admin: 11/14/17 12:06 Dose: 250 mls/hr Sodium Chloride (Normal Saline) 1,000 mls @ 75 mls/hr IV ASDIRECTED [facility] Stop: 11/15/17 05:19 - Exam Quality Assessment: DVT Prophylaxis General: Alert, No Acute Distress HEENT: Pupils Equal, Mucous Membr. Moist/[place] Neck: Supple Lungs: Clear to Auscultation, Normal Respiratory Effort, Decreased Breath Sounds (bilat bases) Cardiovascular: Regular Rate, Regular Rhythm GI/Abdominal Exam: Normal Bowel Sounds, Soft, Non-Tender, Other (ferreira cath draining straw colored clear yellow urine) (Female) Exam: Deferred Extremities: Normal Inspection, No Pedal Edema, Normal Capillary Refill, Other ( no pain with palp to left hip on exam this am. Legs flexed and patient unable to follow instructions to straighten legs. ) Peripheral Pulses: 2+: Dorsalis Pedis (L), Dorsalis Pedis (R) Skin: Warm, Dry, Intact Neurological: Other (pleasantly confused with dementia; cannot follow commands) Psy/Mental Status: Alert, Other (pleasantly confused, dementia) - Problem List & Annotations (1) Hip fracture, left SNOMED Code(s): 275567243 Code(s): S72.002A - FRACTURE OF UNSP PART OF NECK OF LEFT FEMUR, INIT Status: Acute Priority: High Current Visit: Yes Qualifiers: Encounter type: initial encounter Fracture type: closed Qualified Code(s) : S72.002A - Fracture of unspecified part of neck of left femur, initial encounter for closed fracture (2) Dementia SNOMED Code(s): 65976136 Code(s): F03.90 - UNSPECIFIED DEMENTIA WITHOUT BEHAVIORAL DISTURBANCE Status: Chronic Priority: High Current Visit: Yes Qualifiers: Dementia type: Alzheimer's disease Alzheimer's disease onset: unspecified onset Dementia behavioral disturbance: without behavioral disturbance Qualified Code(s): G30.9 - Alzheimer's disease, unspecified; F02.80 - Dementia in other diseases classified elsewhere without behavioral disturbance; F02.80 - Dementia in other diseases classified elsewhere without behavioral disturbance; F02.80 - Dementia in other diseases classified elsewhere without behavioral disturbance (3) Lower extremity edema SNOMED Code(s): 172801350 Code(s): R60.0 - LOCALIZED EDEMA Status: Chronic Priority: Medium Current Visit: Yes (4) Bipolar disorder SNOMED Code(s): 90703825 Code(s): F31.9 - BIPOLAR DISORDER, UNSPECIFIED Status: Chronic Priority: Low Current Visit: No Qualifiers: Active/Remission status: remission status unspecified Qualified Code(s): F31.9 - Bipolar disorder, unspecified (5) CAD (coronary artery disease) SNOMED Code(s): 25344795 Code(s): I25.10 - ATHSCL HEART DISEASE OF [place] CORONARY ARTERY W/O ANG PCTRS Status: Chronic Priority: Low Current Visit: No Qualifiers: Coronary Disease-Associated Artery/Lesion type: [place] artery [place] vs. transplanted heart: [place] heart Associated angina: without angina Qualified Code(s): I25.10 - Atherosclerotic heart disease of [place] coronary artery without angina pectoris (6) Hypokalemia SNOMED Code(s): 11902524 Code(s): E87.6 - HYPOKALEMIA Status: Acute Priority: High Current Visit : Yes - Problem List Review Problem List Initiated/Reviewed/Updated: Yes - Plan Plan:: I/P Acute: Varus angulated intertrochanteric fracture within the left hip - 2/2 unwitnessed fall at SNF - Fall Precautions - hx/o recurrent falls - She is reportedly somewhat ambulatory at SNF - Planned surgical correction by Ortho- Dr. Vieira this morning. - Pain medication PRN Hypokalemia- - Replete and follow daily labs and magnesium Pre-Operative Risk Stratification - Risk factors: Advanced dementia, CAD, Bipolar disorder - METS < 4, SVS, Ekg /CXR: benign - Physical exam fairly benign - No recent cardiac or lung eval in chart - No active cardiac or lung disease - Non-smoker, Non-drinker - Based on the data provided, the patient carries mild-moderate cardiac risk for intermediate surgical risk Chronic: CAD Alzheimer dementia -stable Bipolar disorder - stable OA Insomnia Personality disorder - stable Lower extremity edema-- monitor postoperatively Generalized muscle weakness Plan: Routine AM labs PT/PTT PT/OT consult IS q2 awake after surgery if patient can complete PPI for GI ppx DVT ppx and Post-operative Pain Management: as per primary team SW for DC planning---plan back to NH/SNF when medically stable postoperatively. I discussed plans with her daughter this morning, questions were answered. Code status: DNR Her PCP is Dr. Jama at [facility] here in [place]
[2017-11-15] MEDS ORDERED: fentaNYL 250 MCG/5 ML SDV ONE (10:43)
[2017-11-15] MEDS ORDERED: Propofol 200 MG/20 ML SDV ONE (10:43)
[2017-11-15] MEDS ORDERED: Dexamethasone 4 MG/ML 5 ML MDV ONE (10:47)
[2017-11-15] MEDS ORDERED: Ondansetron 4 MG/2 ML SDV ONE (10:47)
[2017-11-15] MEDS ORDERED: ceFAZolin 1 GM Vial ONE (12:23)
[2017-11-15] MEDS: Iodine/Sodium Iodide 2% Tincture 30 ML Bottle ONE ×2 (12:35→13:02)
[2017-11-15] MEDS ORDERED: HYDROmorphone 1 MG/ML Syringe ONE (13:05)
[2017-11-15] MEDS ORDERED: Lactated Ringers 1,000 ML ONE ×2 (13:05)
[2017-11-15] MEDS ORDERED: ePHEDrine/Normal Saline 25 MG/5 ML Syringe ONE (13:24)
[2017-11-15] MEDS ORDERED: Neostigmine Methylsulfate 1 MG/ML 5 ML Syringe ONE (14:07)
[2017-11-15] MEDS ORDERED: Ondansetron 4 MG/2 ML SDV IVPUSH PRN (14:18)
[2017-11-15] MEDS ORDERED: HYDROmorphone 0.5 MG/0.5 ML Syringe IVPUSH PRN (14:18)
[2017-11-15] MEDS ORDERED: fentaNYL 100 MCG/2 ML SDV IVPUSH PRN (14:18)
--- NOTE | 2017-11-15 14:20 | PCM.POSTAN ---
POST ANESTHESIA ASSESSMENT - MENTAL STATUS Mental Status: Alert, Oriented - VITAL SIGNS Pulse Rate: 63 SaO2: 99 Resp Rate: 16 Blood Pressure: 135/57 Temperature: 36.4 C - RESPIRATORY Respiratory Status: Respiratory Rate WNL, Airway Patent, O2 Saturation Stable, Supplemental Oxygen - CARDIOVASCULAR CV Status: Pulse Rate WNL, Blood Pressure Stable - GASTROINTESTINAL GI Status: No Symptoms - PAIN Pain Score: 0 - POST OP HYDRATION Hydration Status: Adequate & Stable
--- NOTE | 2017-11-15 15:22 | CR ---
Left hip: Multiple fluoroscopic spot views were obtained of the left hip. Comparison: Previous pelvis study of 11/14/17. Study shows placement of orthopedic hardware with reduction of previous intertrochanteric fracture and hardware showing fixation of this fracture. Fluoroscopy time given as 204 seconds. Impression: 1. Reduction and fixation of previous left hip fracture. Diagnostic code #2
[2017-11-15] MEDS: Isosorbide Mononitrate 30 MG Tab.ER PO SCH (16:43)
[2017-11-15] MEDS: ceFAZolin 1 GM in Premix Bag 1 BAG IV SCH (20:04)
[2017-11-15] MEDS: Acetaminophen/oxyCODONE 325-5 MG Tab PO PRN (20:07)
[2017-11-15] MEDS: ARIPiprazole 10 MG Tab PO SCH (20:08)
[2017-11-16] MEDS: ceFAZolin 1 GM in Premix Bag 1 BAG IV SCH ×3 (00:27→13:00)
[2017-11-16] MEDS: Sodium Chloride 0.9% 1,000 ML IV SCH ×2 (04:00→16:03)
[2017-11-16] MEDS: Acetaminophen/oxyCODONE 325-5 MG Tab PO PRN ×3 (04:06→16:03)
--- NOTE | 2017-11-16 07:19 | OR ---
DATE OF OPERATION: 11/15/2017 SURGEON: Sedrick Vieira MD PREOPERATIVE DIAGNOSIS: Displaced intertrochanteric left hip fracture. POSTOPERATIVE DIAGNOSIS: Displaced intertrochanteric left hip fracture. ANESTHESIA: General. OPERATION PERFORMED: Gamma nail fixation, left hip intertrochanteric fracture. DESCRIPTION OF PROCEDURE: The patient was taken to the operative room in supine position, placed under general anesthesia, and due to dementia, the patient was then transferred to the fracture table where she was positioned and the fracture was then reduced on the fracture table in preparation for an intramedullary nailing using the Gamma nail for the left hip. Once the reduction was carried out and the patient positioned for approach to the left hip area, the operation proceeded with prepping and draping of the left hip by standard technique. After prepping and draping, the level of the greater trochanter was identified. Approximately 2 cm above the greater trochanter, an incision was placed extending proximally for approximately 5 cm penetrating through the skin and subcutaneous tissues. Direct palpation was made to the tip of the greater trochanter and the fascia was incised gaining approach to the tip of the greater trochanter by palpation, and then using a pin, the level of approach was in the anterior 2/3 of the greater trochanter. The pin was inserted at that level and then the area was opened up by reaming. Once that was accomplished, the operation proceeded with a ball-tipped guide pin being placed down into the femoral canal and then the operation proceeded with insertion of a short stem Gamma nail into the greater trochanter approaching through the greater trochanter area. With the Gamma nail inserted, the angulation was determined to be 120 degrees and this was compared to her right hip. Once the Gamma nail was positioned, operation then proceeded with insertion of the guide pin into the femoral head. Several attempts were made to get the correct position of the pin in the femoral head, and once that was accomplished, the operation then proceeded with standard reaming and was opted to go with a 90 mm femoral head screw for the left hip. This was inserted by standard technique, ending up approximately 5-7 mm away from the subchondral bone area and the approach was then washed and viewed with fluoroscopy in both AP and lateral. Once the pin was in place, of note, the fracture almost reduced anatomically. With the Gamma nail and the pin in place, the operation then proceeded with insertion of a distal screw in a static situation to fixate the distal portion of the Gamma nail. Once that was completed, the operation proceeded with thorough irrigation of the wound areas. The deep tissues were closed with #1 Vicryl, subcutaneous tissue with 2-0 Vicryl, and skin with skin sheron. The patient tolerated the whole procedure well. She left the operating room in stable condition to recovery room. ESTIMATED BLOOD LOSS: MMODAL /[id number]
--- NOTE | 2017-11-16 07:24 | PCM48HPAN ---
Post Anesthesia Note - EVALUATION WITHIN 48HRS OF ANESTHETIC Vital Signs in Normal Range: Yes Patient Participated in Evaluation: Yes Respiratory Function Stable: Yes Airway Patent: Yes Cardiovascular Function Stable: Yes Hydration Status Stable: Yes Pain Control Satisfactory: Yes Nausea and Vomiting Control Satisfactory: Yes Mental Status Recovered: Yes
[2017-11-16] MEDS: HYDROmorphone 0.5 MG/0.5 ML Syringe IVPUSH PRN (08:30)
[2017-11-16] MEDS: Furosemide 80 MG Tab PO SCH (08:32)
[2017-11-16] MEDS: Famotidine 20 MG Tab PO SCH ×2 (08:32→20:50)
[2017-11-16] MEDS: Celecoxib 100 MG Cap PO SCH (08:32)
[2017-11-16] MEDS: traMADol 50 MG Tab PO SCH ×2 (08:33→20:51)
[2017-11-16] MEDS: Mupirocin Oint 22 GM Tube SCH ×2 (08:34→20:53)
[2017-11-16] MEDS: Isosorbide Mononitrate 30 MG Tab.ER PO SCH (08:34)
[2017-11-16] MEDS ORDERED: Sodium Chloride 0.9% 500 ML IV ONE (09:15)
--- NOTE | 2017-11-16 13:27 | PCM.PN ---
- General Info Date of Service: 11/16/17 Admission Dx/Problem (Free Text): Admission Diagnosis/Problem Admission Diagnosis/Problem Hip fracture requiring operative repair Lindsay is seen this morning. She is pleasantly confused. She is resting comfortably. Denies that her left hip is causing pain or discomfort. Ferreira cath is in place and to be DC'd today. Functional Status: Reports: Pain Controlled, Tolerating Diet, Urinating. Denies : Ambulating, New Symptoms - Review of Systems General: Reports: Weakness (generalized and chronic) Pulmonary: Denies: Shortness of Breath Neurological: Reports: Confusion Psychiatric: Reports: Confusion Systems Review Comment:: ROS unable to determine due to severe dementia - Patient Data Vitals - Most Recent: Last Vital Signs Temp 99.0 F 11/16/17 11:32 Pulse 66 11/16/17 12:51 Resp 12 11/16/17 12:51 BP 102/60 11/16/17 12:51 Pulse Ox 92 L 11/16/17 12:51 Weight - Most Recent: 147 lb I&O - Last 24 Hours: Intake & Output 11/15/17 11/16/17 11/16/17 22:59 06:59 14:59 Intake Total 1950 888 140 Output Total 1150 Balance 800 888 140 Lab Results Last 24 Hours: Laboratory Results - last 24 hr 11/16/17 11/16/17 Range/Units 06:08 06:08 WBC 8.89 (3.98-10.04) K/mm3 RBC 3.98 (3.98-5.22) M/mm3 Hgb 11.4 (11.2-15.7) gm/L Hct 36.4 (34.1-44.9) % MCV 91.5 (79.4-94.8) fl MCH 28.6 (25.6-32.2) pg MCHC 31.3 L (32.2-35.5) g/dl RDW Std Deviation 46.1 (36.4-46.3) fL Plt Count 207 (182-369) K/mm3 MPV 10.6 (9.4-12.3) fl Neut % (Auto) 71.4 H (34.0-71.1) % Lymph % (Auto) 15.0 L (19.3-51.7) % [place] % (Auto) 12.7 H (4.7-12.5) % Eos % (Auto) 0.6 L (0.7-5.8) Baso % (Auto) 0.2 (0.1-1.2) % Neut # (Auto) 6.35 H (1.56-6.13) K/mm3 Lymph # (Auto) 1.33 (1.18-3.74) K/mm3 [place] # (Auto) 1.13 H (0.24-0.36) K/mm3 Eos # (Auto) 0.05 (0.04-0.36) K/mm3 Baso # (Auto) 0.02 (0.01-0.08) K/mm3 Sodium 141 (136-145) mEq/L Potassium 3.5 (3.5-5.1) mEq/L Chloride 107 (98-107) mEq/L Carbon Dioxide 29 (21-32) mEq/L Anion Gap 8.5 (5-15) BUN 16 (7-18) mg/dL Creatinine 0.6 (0.55-1.02) mg/dL Est Cr Clr Drug Dosing 60.83 mL/min Estimated GFR (MDRD) > 60 (>60) mL/min BUN/Creatinine Ratio 26.7 H (14-18) Glucose 107 (83-115) mg/dL Calcium 8.2 L (8.5-10.1) mg/dL Magnesium 2.0 (1.8-2.4) mg/dl Med Orders - Current: Current Medications Acetaminophen (Tylenol) 650 mg PO Q4H PRN PRN Reason: Pain (Mild 1-3)/fever Albuterol (Proventil Neb Soln) 2.5 mg NEB TID [facility] Albuterol/Ipratropium (Duoneb 3.0-0.5 Mg/3 Ml) 3 ml NEB Q4H PRN PRN Reason: Shortness Of Breath/wheezing Aripiprazole (Abilify) 12.5 mg PO BEDTIME [facility] Last Admin: 11/15/17 20:08 Dose: 12.5 mg Bisacodyl (Dulcolax) 5 mg PO DAILY PRN PRN Reason: Constipation Celecoxib (Celebrex) 200 mg PO DAILY [facility] Last Admin: 11/16/17 08:32 Dose: 200 mg Docusate Sodium (Colace) 100 mg PO BID PRN PRN Reason: Constipation Famotidine (Pepcid) 20 mg PO BID [facility] Last Admin: 11/16/17 08:32 Dose: 20 mg Furosemide (Lasix) 80 mg PO DAILY [facility] Last Admin: 11/16/17 08:32 Dose: 80 mg Hydromorphone HCl (Dilaudid) 0.25 mg IVPUSH Q4H PRN PRN Reason: severe pain Last Admin: 11/16/17 08:30 Dose: 0.25 mg Sodium Chloride (Normal Saline) 1,000 mls @ 50 mls/hr IV ASDIRECTED [facility] Last Admin: 11/16/17 04:00 Dose: 50 mls/hr Isosorbide Mononitrate (Imdur) 15 mg PO DAILY [facility] Last Admin: 11/16/17 08:34 Dose: 15 mg Mupirocin (Bactroban Oint) 2 gm .XX BID [facility] Stop: 11/19/17 22:01 Last Admin: 11/16/17 08:34 Dose: 1 applic Ondansetron HCl (Zofran Odt) 4 mg PO Q6H PRN PRN Reason: nausea, able to take PO Ondansetron HCl (Zofran) 4 mg IV Q6H PRN PRN Reason: Nausea/Vomiting Oxycodone/Acetaminophen (Percocet 325-5 Mg) 1 tab PO Q4H PRN PRN Reason: Pain (moderate 4-6) Last Admin: 11/16/17 08:32 Dose: 1 tab Polyethylene Glycol (Miralax) 17 gm PO DAILY PRN PRN Reason: Constipation Senna/Docusate Sodium (Senna Plus) 1 tab PO BID PRN PRN Reason: Constipation Tramadol HCl (Ultram) 50 mg PO BID [facility] Last Admin: 11/16/17 08:33 Dose: 50 mg Discontinued Medications Bumetanide (Bumex) 0.5 mg IVPUSH DAILY [facility] Bumetanide (Bumex) 0.5 mg IVPUSH BID [facility] Last Admin: 11/15/17 09:20 Dose: Not Given Cefazolin Sodium (Ancef) Confirm Administered Dose 2 gm .ROUTE .STK-MED ONE Stop: 11/15/17 12:24 Dexamethasone (Dexamethasone) Confirm Administered Dose 20 mg .ROUTE .STK-MED ONE Stop: 11/15/17 10:48 Ephedrine Sulfate (Ephedrine In Ns) Confirm Administered Dose 25 mg .ROUTE .STK- MED ONE Stop: 11/15/17 13:25 Fentanyl (Sublimaze) Confirm Administered Dose 250 mcg .ROUTE .STK-MED ONE Stop: 11/15/17 10:44 Fentanyl (Sublimaze) 50 mcg IVPUSH Q5M PRN PRN Reason: Pain Stop: 11/15/17 16:00 Furosemide (Lasix) 40 mg IVPUSH NOW ONE Stop: 11/14/17 16:17 Last Admin: 11/14/17 16:52 Dose: 40 mg Glycopyrrolate () Confirm Administered Dose 1 mg .ROUTE .STK-MED ONE Stop: 11/15/17 14:08 Hydromorphone HCl (Dilaudid) 0.5 mg IVPUSH ONETIME ONE Stop: 11/14/17 11:57 Last Admin: 11/14/17 12:04 Dose: 0.5 mg Hydromorphone HCl (Dilaudid) Confirm Administered Dose 1 mg .ROUTE .STK-MED ONE Stop: 11/15/17 13:06 Hydromorphone HCl (Dilaudid) 0.25 mg IVPUSH Q15M PRN PRN Reason: Pain (severe 7-10) Stop: 11/15/17 14:19 Sodium Chloride (Normal Saline) 1,000 mls @ 250 mls/hr IV ONETIME ONE Stop: 11/14/17 15:55 Last Admin: 11/14/17 12:06 Dose: 250 mls/hr Sodium Chloride (Normal Saline) 1,000 mls @ 75 mls/hr IV ASDIRECTED [facility] Stop: 11/15/17 05:19 Potassium Chloride 10 meq/ (Premix) 100 mls @ 100 mls/hr IV Q1H [facility] Stop: 11/15/17 14:14 Last Admin: 11/15/17 16:49 Dose: 100 mls/hr Lactated Ringer's (Ringers, Lactated) Confirm Administered Dose 1,000 mls @ as directed .ROUTE .STK-MED ONE Stop: 11/15/17 13:06 Lactated Ringer's (Ringers, Lactated) Confirm Administered Dose 1,000 mls @ as directed .ROUTE .STK-MED ONE Stop: 11/15/17 13:06 Cefazolin Sodium/Dextrose 1 gm (/ Premix) 50 mls @ 100 mls/hr IV Q6H [facility] Stop: 11/16/17 12:59 Last Admin: 11/16/17 13:00 Dose: 100 mls/hr Sodium Chloride (Normal Saline) 500 mls @ 500 mls/hr IV .BOLUS ONE Stop: 11/16/17 10:14 Last Admin: 11/16/17 09:35 Dose: 500 mls/hr Iodine (Iodine 2% Mild Tincture) Confirm Administered Dose 30 ml .ROUTE .STK- MED ONE Stop: 11/15/17 09:51 Last Admin: 11/15/17 13:02 Dose: 12 ml Morphine Sulfate (Morphine) 2 mg IVPUSH Q2H PRN PRN Reason: Pain (severe 7-10) Stop: 11/15/17 15:54 Last Admin: 11/15/17 09:20 Dose: 2 mg Neostigmine Methylsulfate (Neostigmine) Confirm Administered Dose 5 mg .ROUTE .STK-MED ONE Stop: 11/15/17 14:08 Ondansetron HCl (Zofran) Confirm Administered Dose 4 mg .ROUTE .STK-MED ONE Stop: 11/15/17 10:48 Ondansetron HCl (Zofran) 4 mg IVPUSH ONETIME PRN PRN Reason: Nausea/Vomiting Stop: 11/15/17 18:00 Propofol (Diprivan 20 Ml) Confirm Administered Dose 200 mg .ROUTE .STK-MED ONE Stop: 11/15/17 10:44 - Exam Quality Assessment: DVT Prophylaxis General: No Acute Distress HEENT: EOMI, Mucous Membr. Moist/[place] Neck: Supple Lungs: Normal Respiratory Effort, Decreased Breath Sounds Cardiovascular: Regular Rate, Regular Rhythm GI/Abdominal Exam: Normal Bowel Sounds, Soft, Non-Tender (Female) Exam: Deferred Extremities: No Pedal Edema, Normal Capillary Refill, Other (dressing to lt hip CDI. Teds bilat) Peripheral Pulses: 2+: Dorsalis Pedis (L), Dorsalis Pedis (R) Neurological: Other (severe dementia) Psy/Mental Status: Other (severe dementia- talking jibberish today) - Problem List & Annotations (1) Hip fracture, left SNOMED Code(s): 108191227 Code(s): S72.002A - FRACTURE OF UNSP PART OF NECK OF LEFT FEMUR, INIT Status: Acute Priority: High Current Visit: Yes Qualifiers: Encounter type: initial encounter Fracture type: closed Qualified Code(s) : S72.002A - Fracture of unspecified part of neck of left femur, initial encounter for closed fracture (2) Dementia SNOMED Code(s): 78894224 Code(s): F03.90 - UNSPECIFIED DEMENTIA WITHOUT BEHAVIORAL DISTURBANCE Status: Chronic Priority: High Current Visit: Yes Qualifiers: Dementia type: Alzheimer's disease Alzheimer's disease onset: unspecified onset Dementia behavioral disturbance: without behavioral disturbance Qualified Code(s): G30.9 - Alzheimer's disease, unspecified; F02.80 - Dementia in other diseases classified elsewhere without behavioral disturbance; F02.80 - Dementia in other diseases classified elsewhere without behavioral disturbance; F02.80 - Dementia in other diseases classified elsewhere without behavioral disturbance (3) Lower extremity edema SNOMED Code(s): 071042285 Code(s): R60.0 - LOCALIZED EDEMA Status: Chronic Priority: Medium Current Visit: Yes (4) Bipolar disorder SNOMED Code(s): 43828394 Code(s): F31.9 - BIPOLAR DISORDER, UNSPECIFIED Status: Chronic Priority: Low Current Visit: No Qualifiers: Active/Remission status: remission status unspecified Qualified Code(s): F31.9 - Bipolar disorder, unspecified (5) CAD (coronary artery disease) SNOMED Code(s): 14455527 Code(s): I25.10 - ATHSCL HEART DISEASE OF [place] CORONARY ARTERY W/O ANG PCTRS Status: Chronic Priority: Low Current Visit: No Qualifiers: Coronary Disease-Associated Artery/Lesion type: [place] artery [place] vs. transplanted heart: [place] heart Associated angina: without angina Qualified Code(s): I25.10 - Atherosclerotic heart disease of [place] coronary artery without angina pectoris (6) Hypokalemia SNOMED Code(s): 23778685 Code(s): E87.6 - HYPOKALEMIA Status: Resolved Priority: High Current Visit: Yes - Problem List Review Problem List Initiated/Reviewed/Updated: Yes - My Orders Last 24 Hours: My Active Orders 11/16/17 07:00 HYDROmorphone [Dilaudid] 0.25 mg IVPUSH Q4H PRN 11/16/17 09:00 Furosemide [Lasix] 80 mg PO DAILY 11/16/17 13:18 RT Aerosol Therapy [RC] ASDIRECTED 11/16/17 15:00 Albuterol [Proventil Neb Soln] 2.5 mg NEB TID - Plan Plan:: I/P Acute: Varus angulated intertrochanteric fracture within the left hip, 2/2 unwitnessed fall at SNF - Fall Precautions - hx/o recurrent falls, She is reportedly somewhat ambulatory at SNF -S/P ORIF- IM nailing of left IT hip fx with Dr. Vieira -POD #1 -Pain management and DVT prophylax per Ortho -NWB per Ortho -PT/OT -Plan for return to SNF when medically stable, likely Sunday Hypokalemia-resolved - Replete and follow daily labs and magnesium Low UO overnight- 50cc/hr -Fluid bolus -Normal renal function today, cont to monitor -DC ferreira cath Chronic: CAD Alzheimer dementia -stable but severe Bipolar disorder - stable OA Insomnia Personality disorder - stable Lower extremity edema-- monitor postoperatively Generalized muscle weakness Plan: Routine AM labs PT/OT consult IS q2 awake after surgery if patient can complete -- unable to cooperate PPI for GI ppx DVT ppx and Post-operative Pain Management: as per primary team SW for DC planning---plan back to NH/SNF when medically stable postoperatively. I discussed plans with her daughter morning of surgery, questions were answered. Code status: DNR Her PCP is Dr. Jama at [facility] here in [place]
[2017-11-16] MEDS: Albuterol 0.083% 2.5 MG/3 ML Neb Soln NEB SCH ×2 (16:12→20:15)
[2017-11-16] MEDS: ARIPiprazole 10 MG Tab PO SCH (20:48)
[2017-11-17] MEDS: Acetaminophen/oxyCODONE 325-5 MG Tab PO PRN ×3 (00:13→17:16)
--- NOTE | 2017-11-17 06:42 | PCM.PN ---
- General Info Date of Service: 11/17/17 Admission Dx/Problem (Free Text): Admission Diagnosis/Problem Admission Diagnosis/Problem Hip fracture requiring operative repair Subjective Update: Follow Up Functional Status: Reports: Pain Controlled, Tolerating Diet, Urinating. 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 Denies: Weakness Psychiatric: Denies: Depression, Anxiety, Agitation, Hallucinations Systems Review Comment:: Limited ROS due to Advanced Dementia. Has had urinary retention requiring at x3 straight catherization. This morning she was still retaining > 700 ml of bladder urine. Her pain is controlled and reports no complaints. Her vitals are fairly stable. Her K is slightly low at 3.4. - Patient Data Vitals - Most Recent: Last Vital Signs Temp 36.6 C 11/17/17 04:00 Pulse 69 11/17/17 04:00 Resp 17 11/17/17 04:00 BP 122/57 L 11/17/17 04:00 Pulse Ox 91 L 11/17/17 04:00 Weight - Most Recent: 66.497 kg I&O - Last 24 Hours: Intake & Output 11/16/17 11/16/17 11/17/17 14:59 22:59 06:59 Intake Total 140 1260 50 Output Total 600 Balance 140 1260 -550 Lab Results Last 24 Hours: Laboratory Results - last 24 hr 11/16/17 Range/Units 06:08 Sodium 141 (136-145) mEq/L Potassium 3.5 (3.5-5.1) mEq/L Chloride 107 (98-107) mEq/L Carbon Dioxide 29 (21-32) mEq/L Anion Gap 8.5 (5-15) BUN 16 (7-18) mg/dL Creatinine 0.6 (0.55-1.02) mg/dL Est Cr Clr Drug Dosing 60.83 mL/min Estimated GFR (MDRD) > 60 (>60) mL/min BUN/Creatinine Ratio 26.7 H (14-18) Glucose 107 (83-115) mg/dL Calcium 8.2 L (8.5-10.1) mg/dL Magnesium 2.0 (1.8-2.4) mg/dl Med Orders - Current: Current Medications Acetaminophen (Tylenol) 650 mg PO Q4H PRN PRN Reason: Pain (Mild 1-3)/fever Albuterol (Proventil Neb Soln) 2.5 mg NEB TID [facility] Last Admin: 11/16/17 20:15 Dose: 2.5 mg Albuterol/Ipratropium (Duoneb 3.0-0.5 Mg/3 Ml) 3 ml NEB Q4H PRN PRN Reason: Shortness Of Breath/wheezing Aripiprazole (Abilify) 12.5 mg PO BEDTIME [facility] Last Admin: 11/16/17 20:48 Dose: 12.5 mg Bisacodyl (Dulcolax) 5 mg PO DAILY PRN PRN Reason: Constipation Last Admin: 11/17/17 00:13 Dose: 5 mg Celecoxib (Celebrex) 200 mg PO DAILY [facility] Last Admin: 11/16/17 08:32 Dose: 200 mg Docusate Sodium (Colace) 100 mg PO BID PRN PRN Reason: Constipation Famotidine (Pepcid) 20 mg PO BID [facility] Last Admin: 11/16/17 20:50 Dose: 20 mg Furosemide (Lasix) 80 mg PO DAILY [facility] Last Admin: 11/16/17 08:32 Dose: 80 mg Hydromorphone HCl (Dilaudid) 0.25 mg IVPUSH Q4H PRN PRN Reason: severe pain Last Admin: 11/16/17 08:30 Dose: 0.25 mg Sodium Chloride (Normal Saline) 1,000 mls @ 50 mls/hr IV ASDIRECTED ON [facility] Last Admin: 11/16/17 16:03 Dose: 50 mls/hr Isosorbide Mononitrate (Imdur) 15 mg PO DAILY [facility] Last Admin: 11/16/17 08:34 Dose: 15 mg Mupirocin (Bactroban Oint) 2 gm .XX BID [facility] Stop: 11/19/17 22:01 Last Admin: 11/16/17 20:53 Dose: 1 applic Ondansetron HCl (Zofran Odt) 4 mg PO Q6H PRN PRN Reason: nausea, able to take PO Ondansetron HCl (Zofran) 4 mg IV Q6H PRN PRN Reason: Nausea/Vomiting Oxycodone/Acetaminophen (Percocet 325-5 Mg) 1 tab PO Q4H PRN PRN Reason: Pain (moderate 4-6) Last Admin: 11/17/17 00:13 Dose: 1 tab Polyethylene Glycol (Miralax) 17 gm PO DAILY PRN PRN Reason: Constipation Last Admin: 11/16/17 16:03 Dose: 17 gm Senna/Docusate Sodium (Senna Plus) 1 tab PO BID PRN PRN Reason: Constipation Tramadol HCl (Ultram) 50 mg PO BID [facility] Last Admin: 11/16/17 20:51 Dose: 50 mg Discontinued Medications Bumetanide (Bumex) 0.5 mg IVPUSH DAILY [facility] Bumetanide (Bumex) 0.5 mg IVPUSH BID [facility] Last Admin: 11/15/17 09:20 Dose: Not Given Cefazolin Sodium (Ancef) Confirm Administered Dose 2 gm .ROUTE .STK-MED ONE Stop: 11/15/17 12:24 Dexamethasone (Dexamethasone) Confirm Administered Dose 20 mg .ROUTE .STK-MED ONE Stop: 11/15/17 10:48 Ephedrine Sulfate (Ephedrine In Ns) Confirm Administered Dose 25 mg .ROUTE .STK- MED ONE Stop: 11/15/17 13:25 Fentanyl (Sublimaze) Confirm Administered Dose 250 mcg .ROUTE .STK-MED ONE Stop: 11/15/17 10:44 Fentanyl (Sublimaze) 50 mcg IVPUSH Q5M PRN PRN Reason: Pain Stop: 11/15/17 16:00 Furosemide (Lasix) 40 mg IVPUSH NOW ONE Stop: 11/14/17 16:17 Last Admin: 11/14/17 16:52 Dose: 40 mg Glycopyrrolate () Confirm Administered Dose 1 mg .ROUTE .STK-MED ONE Stop: 11/15/17 14:08 Hydromorphone HCl (Dilaudid) 0.5 mg IVPUSH ONETIME ONE Stop: 11/14/17 11:57 Last Admin: 11/14/17 12:04 Dose: 0.5 mg Hydromorphone HCl (Dilaudid) Confirm Administered Dose 1 mg .ROUTE .STK-MED ONE Stop: 11/15/17 13:06 Hydromorphone HCl (Dilaudid) 0.25 mg IVPUSH Q15M PRN PRN Reason: Pain (severe 7-10) Stop: 11/15/17 14:19 Sodium Chloride (Normal Saline) 1,000 mls @ 250 mls/hr IV ONETIME ONE Stop: 11/14/17 15:55 Last Admin: 11/14/17 12:06 Dose: 250 mls/hr Sodium Chloride (Normal Saline) 1,000 mls @ 75 mls/hr IV ASDIRECTED ON LICENSE OF [facility] Stop: 11/15/17 05:19 Potassium Chloride 10 meq/ (Premix) 100 mls @ 100 mls/hr IV Q1H ON LICENSE [facility] Stop: 11/15/17 14:14 Last Admin: 11/15/17 16:49 Dose: 100 mls/hr Lactated Ringer's (Ringers, Lactated) Confirm Administered Dose 1,000 mls @ as directed .ROUTE .STK-MED ONE Stop: 11/15/17 13:06 Lactated Ringer's (Ringers, Lactated) Confirm Administered Dose 1,000 mls @ as directed .ROUTE .STK-MED ONE Stop: 11/15/17 13:06 Cefazolin Sodium/Dextrose 1 gm (/ Premix) 50 mls @ 100 mls/hr IV Q6H ON [facility] Stop: 11/16/17 12:59 Last Admin: 11/16/17 13:00 Dose: 100 mls/hr Sodium Chloride (Normal Saline) 500 mls @ 500 mls/hr IV .BOLUS ONE Stop: 11/16/17 10:14 Last Admin: 11/16/17 09:35 Dose: 500 mls/hr Iodine (Iodine 2% Mild Tincture) Confirm Administered Dose 30 ml .ROUTE .STK- MED ONE Stop: 11/15/17 09:51 Last Admin: 11/15/17 13:02 Dose: 12 ml Morphine Sulfate (Morphine) 2 mg IVPUSH Q2H PRN PRN Reason: Pain (severe 7-10) Stop: 11/15/17 15:54 Last Admin: 11/15/17 09:20 Dose: 2 mg Neostigmine Methylsulfate (Neostigmine) Confirm Administered Dose 5 mg .ROUTE .STK-MED ONE Stop: 11/15/17 14:08 Ondansetron HCl (Zofran) Confirm Administered Dose 4 mg .ROUTE .STK-MED ONE Stop: 11/15/17 10:48 Ondansetron HCl (Zofran) 4 mg IVPUSH ONETIME PRN PRN Reason: Nausea/Vomiting Stop: 11/15/17 18:00 Propofol (Diprivan 20 Ml) Confirm Administered Dose 200 mg .ROUTE .STK-MED ONE Stop: 11/15/17 10:44 - Exam General: Alert, Cooperative, No Acute Distress HEENT: Pupils Equal, Pupils Reactive Neck: Supple, Trachea Midline, No JVD Lungs: Normal Respiratory Effort, Decreased Breath Sounds Cardiovascular: Regular Rate, Regular Rhythm GI/Abdominal Exam: Normal Bowel Sounds, Soft, Non-Tender, No Organomegaly, No Distention, No Abnormal Bruit, No Mass (Female) Exam: Deferred Back Exam: Other (deferred) Extremities: Normal Inspection, Normal Range of Motion, Non-Tender, No Pedal Edema, Normal Capillary Refill Peripheral Pulses: 2+: Dorsalis Pedis (L), Dorsalis Pedis (R) Skin: Warm, Dry, Intact Wound/Incisions: Healing Well, Dressing Dry and Intact, No Drainage Neurological: No New Focal Deficit Psy/Mental Status: Alert, Normal Mood. No: Normal Affect, Agitated, Withdrawal Symptoms Physical Findings Comments:: Alert, awake and comfortable but she is non sensible. - Problem List Review Problem List Initiated/Reviewed/Updated: Yes - My Orders Last 24 Hours: My Active Orders 11/16/17 Breakfast Regular Diet [DIET] - Plan Plan:: I/P Acute: Varus angulated intertrochanteric fracture within the left hip - 2/2 unwitnessed fall at [facility] - Fall Precautions - hx/o recurrent falls, She is reportedly somewhat ambulatory at SNF - S/P ORIF- IM nailing of left IT hip fx with Dr. Vieira - POD #2 - Pain management and DVT prophylax per Ortho - NWB per Ortho - Continue PT/OT - Plan for return to SNF when medically stable, likely Sunday Mild Hypokalemia - K 3.4 - Replete and follow daily labs Post Operative Urinary Retention - Patient is on narcotic and she has been immobile - Paredes catheter if indicated Chronic: CAD Alzheimer dementia -stable but severe Bipolar disorder - stable OA Insomnia Personality disorder - stable Lower extremity edema-- monitor postoperatively Generalized muscle weakness Plan: She is clinically stable Continue current treatment Routine AM labs Continue PT/OT in bed IS q2 awake after surgery if patient can complete -- unable to cooperate PPI for GI ppx DVT ppx: SCDs and Lovenox SubQ Post Operative Pain Management: Narcotics and Tramadol SW for DC planning---plan back to NH/SNF when medically stable postoperatively Code status: DNR Her PCP is Dr. Jama at [facility] here in [place] LOS > 96 hrs pending resolution of post operative urinary retention
[2017-11-17] MEDS: Celecoxib 100 MG Cap PO SCH (08:48)
[2017-11-17] MEDS: Mupirocin Oint 22 GM Tube SCH ×2 (08:48→21:43)
[2017-11-17] MEDS: traMADol 50 MG Tab PO SCH ×2 (08:49→21:41)
[2017-11-17] MEDS: Furosemide 80 MG Tab PO SCH (08:50)
[2017-11-17] MEDS: Isosorbide Mononitrate 30 MG Tab.ER PO SCH (08:50)
[2017-11-17] MEDS: HYDROmorphone 0.5 MG/0.5 ML Syringe IVPUSH PRN ×3 (08:53→22:29)
[2017-11-17] MEDS: Famotidine 20 MG Tab PO SCH ×2 (08:53→21:41)
[2017-11-17] MEDS: Albuterol 0.083% 2.5 MG/3 ML Neb Soln NEB SCH ×3 (09:50→20:45)
[2017-11-17] MEDS: Potassium Chloride 20 MEQ Tab.ER PO SCH ×2 (11:35→14:34)
[2017-11-17] MEDS: Sodium Chloride 0.9% 1,000 ML IV SCH (11:36)
[2017-11-17] MEDS ORDERED: Bisacodyl 10 MG Supp RECTAL PRN (11:37)
[2017-11-17] MEDS ORDERED: Enoxaparin 30 MG/0.3 ML Syringe SUBCUT ONE (13:07)
[2017-11-17] MEDS: ARIPiprazole 10 MG Tab PO SCH (21:39)
[2017-11-18] MEDS: Acetaminophen/oxyCODONE 325-5 MG Tab PO PRN ×2 (01:02→14:26)
[2017-11-18] MEDS: Sodium Chloride 0.9% 1,000 ML IV SCH (07:59)
[2017-11-18] MEDS ORDERED: Bumetanide 1 MG/4 ML MDV IVPUSH ONE (08:10)
[2017-11-18] MEDS: HYDROmorphone 0.5 MG/0.5 ML Syringe IVPUSH PRN ×2 (08:41→18:11)
[2017-11-18] MEDS: traMADol 50 MG Tab PO SCH ×2 (08:42→20:33)
[2017-11-18] MEDS: Famotidine 20 MG Tab PO SCH ×2 (08:43→20:33)
[2017-11-18] MEDS: Celecoxib 100 MG Cap PO SCH (08:43)
[2017-11-18] MEDS: Hydrochlorothiazide 12.5 MG Cap PO SCH ×2 (08:43→14:25)
[2017-11-18] MEDS: Isosorbide Mononitrate 30 MG Tab.ER PO SCH (08:44)
[2017-11-18] MEDS: Mupirocin Oint 22 GM Tube SCH ×2 (08:48→20:31)
[2017-11-18] MEDS ORDERED: Enoxaparin 30 MG/0.3 ML Syringe SUBCUT SCH (09:00)
[2017-11-18] MEDS: Albuterol 0.083% 2.5 MG/3 ML Neb Soln NEB SCH (10:07)
--- NOTE | 2017-11-18 12:28 | PCM.PN ---
- General Info Date of Service: 11/18/17 Admission Dx/Problem (Free Text): Admission Diagnosis/Problem Admission Diagnosis/Problem Hip fracture requiring operative repair Subjective Update: Follow Up Functional Status: Reports: Pain Controlled, Tolerating Diet, Ambulating, Urinating - Review of Systems General: Denies: Fever, Weakness, Fatigue, Malaise, Chills HEENT: Reports: No Symptoms Pulmonary: Denies: Shortness of Breath Cardiovascular: Denies: Chest Pain Gastrointestinal: Denies: Abdominal Pain, Nausea, Vomiting Genitourinary: Reports: No Symptoms Musculoskeletal: Reports: No Symptoms Skin: Denies: Cyanosis, Mottled, Pallor, Diaphoresis, Rash Neurological: Denies: Confusion, Difficulty Walking, Weakness, Gait Disturbance Psychiatric: Denies: Depression, Anxiety, Agitation, Hallucinations Systems Review Comment:: No significant overnight or acute issues. She is relatively doing fine. Her vitals are stable. Oddly enough her Sodium is considerably elevated this morning at 156. - Patient Data Vitals - Most Recent: Last Vital Signs Temp 36.4 C 11/18/17 07:45 Pulse 70 11/18/17 07:45 Resp 16 11/18/17 07:45 BP 122/70 11/18/17 08:44 Pulse Ox 98 11/18/17 07:45 Weight - Most Recent: 67.495 kg I&O - Last 24 Hours: Intake & Output 11/17/17 11/18/17 11/18/17 22:59 06:59 14:59 Intake Total 1500 1255 0 Output Total 200 475 Balance 1300 780 0 Lab Results Last 24 Hours: Laboratory Results - last 24 hr 11/18/17 11/18/17 Range/Units 05:44 05:44 WBC 7.85 (3.98-10.04) K/mm3 RBC 3.89 L (3.98-5.22) M/mm3 Hgb 11.5 (11.2-15.7) gm/L Hct 35.5 (34.1-44.9) % MCV 91.3 (79.4-94.8) fl MCH 29.6 (25.6-32.2) pg MCHC 32.4 (32.2-35.5) g/dl RDW Std Deviation 45.4 (36.4-46.3) fL Plt Count 214 (182-369) K/mm3 MPV 10.9 (9.4-12.3) fl Neut % (Auto) 63.0 (34.0-71.1) % Lymph % (Auto) 19.0 L (19.3-51.7) % [place] % (Auto) 13.2 H (4.7-12.5) % Eos % (Auto) 4.3 (0.7-5.8) Baso % (Auto) 0.4 (0.1-1.2) % Neut # (Auto) 4.94 (1.56-6.13) K/mm3 Lymph # (Auto) 1.49 (1.18-3.74) K/mm3 [place] # (Auto) 1.04 H (0.24-0.36) K/mm3 Eos # (Auto) 0.34 (0.04-0.36) K/mm3 Baso # (Auto) 0.03 (0.01-0.08) K/mm3 Sodium 156 H (136-145) mEq/L Potassium 4.0 (3.5-5.1) mEq/L Chloride 118 H (98-107) mEq/L Carbon Dioxide 28 (21-32) mEq/L Anion Gap 14.0 (5-15) BUN 14 (7-18) mg/dL Creatinine 0.4 L (0.55-1.02) mg/dL Est Cr Clr Drug Dosing 91.24 mL/min Estimated GFR (MDRD) > 60 (>60) mL/min BUN/Creatinine Ratio 35.0 H (14-18) Glucose 100 (83-115) mg/dL Calcium 8.7 (8.5-10.1) mg/dL Magnesium 2.0 (1.8-2.4) mg/dl Med Orders - Current: Current Medications Acetaminophen (Tylenol) 650 mg PO Q4H PRN PRN Reason: Pain (Mild 1-3)/fever Last Admin: 11/18/17 03:27 Dose: 650 mg Albuterol/Ipratropium (Duoneb 3.0-0.5 Mg/3 Ml) 3 ml NEB Q4H PRN PRN Reason: Shortness Of Breath/wheezing Aripiprazole (Abilify) 12.5 mg PO BEDTIME QUINTEN Last Admin: 11/17/17 21:39 Dose: 12.5 mg Bisacodyl (Dulcolax) 5 mg PO DAILY PRN PRN Reason: Constipation Last Admin: 11/17/17 00:13 Dose: 5 mg Bisacodyl (Dulcolax) 10 mg RECTAL DAILY PRN PRN Reason: Constipation Last Admin: 11/17/17 12:56 Dose: 10 mg Bumetanide (Bumex) 0.5 mg IVPUSH ONETIME ONE Stop: 11/19/17 09:01 Celecoxib (Celebrex) [address] [facility] Last Admin: 11/18/17 08:43 Dose: 200 mg Docusate Sodium (Colace) 100 mg PO BID PRN PRN Reason: Constipation Enoxaparin Sodium (Lovenox) [address] [facility] Famotidine (Pepcid) [address] [facility] Last Admin: 11/18/17 08:43 Dose: 20 mg Furosemide (Lasix) [address] [facility] Last Admin: 11/17/17 08:50 Dose: 80 mg Hydrochlorothiazide (Hydrochlorothiazide) 12.[address] [facility] Stop: 11/20/17 21:00 Last Admin: 11/18/17 08:43 Dose: 12.5 mg Hydromorphone HCl (Dilaudid) 0.25 mg IVPUSH Q4H PRN PRN Reason: severe pain Last Admin: 11/18/17 08:41 Dose: 0.25 mg Isosorbide Mononitrate (Imdur) [address] [facility] Last Admin: 11/18/17 08:44 Dose: 15 mg Magnesium Sulfate (Pharmacy To Dose - Magnesium Replacement) 0 dose .XX ASDIRECTED PRN PRN Reason: RX TO WATCH MAG LEVELS Mupirocin (Bactroban Oint) [address] [facility] Stop: 11/19/17 22:01 Last Admin: 11/18/17 08:48 Dose: 1 applic Ondansetron HCl (Zofran Odt) 4 mg PO Q6H PRN PRN Reason: nausea, able to take PO Ondansetron HCl (Zofran) 4 mg IV Q6H PRN PRN Reason: Nausea/Vomiting Oxycodone/Acetaminophen (Percocet 325-5 Mg) 1 tab PO Q4H PRN PRN Reason: Pain (moderate 4-6) Last Admin: 11/18/17 01:02 Dose: 1 tab Polyethylene Glycol (Miralax) 17 gm PO DAILY PRN PRN Reason: Constipation Last Admin: 11/16/17 16:03 Dose: 17 gm Potassium Chloride (Pharmacy To Dose - Potassium Replacement) 0 dose .XX ASDIRECTED PRN PRN Reason: RX TO WATCH K LEVELS Senna/Docusate Sodium (Senna Plus) 1 tab PO BID PRN PRN Reason: Constipation Tramadol HCl (Ultram) [address] [facility] Last Admin: 11/18/17 08:42 Dose: 50 mg Discontinued Medications Albuterol (Proventil Neb Soln) 2.[address] [facility] Last Admin: 11/18/17 10:07 Dose: Not Given Bumetanide (Bumex) 0.[address] [facility] Bumetanide (Bumex) 0.[address] [facility] Last Admin: 11/15/17 09:20 Dose: Not Given Bumetanide (Bumex) 1 mg IVPUSH ONETIME ONE Stop: 11/18/17 08:11 Last Admin: 11/18/17 09:17 Dose: 1 mg Cefazolin Sodium (Ancef) Confirm Administered Dose 2 gm .ROUTE .STK-MED ONE Stop: 11/15/17 12:24 Dexamethasone (Dexamethasone) Confirm Administered Dose 20 mg .ROUTE .STK-MED ONE Stop: 11/15/17 10:48 Enoxaparin Sodium (Lovenox) [address] [facility] Last Admin: 11/18/17 08:42 Dose: 30 mg Enoxaparin Sodium (Lovenox) 30 mg SUBCUT ONETIME ONE Stop: 11/17/17 13:08 Last Admin: 11/17/17 14:34 Dose: 30 mg Ephedrine Sulfate (Ephedrine In Ns) Confirm Administered Dose 25 mg .ROUTE .STK- MED ONE Stop: 11/15/17 13:25 Fentanyl (Sublimaze) Confirm Administered Dose 250 mcg .ROUTE .STK-MED ONE Stop: 11/15/17 10:44 Fentanyl (Sublimaze) 50 mcg IVPUSH Q5M PRN PRN Reason: Pain Stop: 11/15/17 16:00 Furosemide (Lasix) 40 mg IVPUSH NOW ONE Stop: 11/14/17 16:17 Last Admin: 11/14/17 16:52 Dose: 40 mg Glycopyrrolate () Confirm Administered Dose 1 mg .ROUTE .STK-MED ONE Stop: 11/15/17 14:08 Hydromorphone HCl (Dilaudid) 0.5 mg IVPUSH ONETIME ONE Stop: 11/14/17 11:57 Last Admin: 11/14/17 12:04 Dose: 0.5 mg Hydromorphone HCl (Dilaudid) Confirm Administered Dose 1 mg .ROUTE .STK-MED ONE Stop: 11/15/17 13:06 Hydromorphone HCl (Dilaudid) 0.25 mg IVPUSH Q15M PRN PRN Reason: Pain (severe 7-10) Stop: 11/15/17 14:19 Sodium Chloride (Normal Saline) 1,000 mls @ 250 mls/hr IV ONETIME ONE Stop: 11/14/17 15:55 Last Admin: 11/14/17 12:06 Dose: 250 mls/hr Sodium Chloride (Normal Saline) 1,000 mls @ 75 mls/hr IV ASDIRECTED [facility] Stop: 11/15/17 05:19 Potassium Chloride 10 meq/ (Premix) 100 mls @ 100 mls/hr IV Q1H [facility] Stop: 11/15/17 14:14 Last Admin: 11/15/17 16:49 Dose: 100 mls/hr Sodium Chloride (Normal Saline) 1,000 mls @ 50 mls/hr IV ASDIRECTED [facility] Last Admin: 11/18/17 07:59 Dose: 50 mls/hr Lactated Ringer's (Ringers, Lactated) Confirm Administered Dose 1,000 mls @ as directed .ROUTE .STK-MED ONE Stop: 11/15/17 13:06 Lactated Ringer's (Ringers, Lactated) Confirm Administered Dose 1,000 mls @ as directed .ROUTE .STK-MED ONE Stop: 11/15/17 13:06 Cefazolin Sodium/Dextrose 1 gm (/ Premix) 50 mls @ 100 mls/hr IV Q6H [facility] Stop: 11/16/17 12:59 Last Admin: 11/16/17 13:00 Dose: 100 mls/hr Sodium Chloride (Normal Saline) 500 mls @ 500 mls/hr IV .BOLUS ONE Stop: 11/16/17 10:14 Last Admin: 11/16/17 09:35 Dose: 500 mls/hr Iodine (Iodine 2% Mild Tincture) Confirm Administered Dose 30 ml .ROUTE .STK- MED ONE Stop: 11/15/17 09:51 Last Admin: 11/15/17 13:02 Dose: 12 ml Morphine Sulfate (Morphine) 2 mg IVPUSH Q2H PRN PRN Reason: Pain (severe 7-10) Stop: 11/15/17 15:54 Last Admin: 11/15/17 09:20 Dose: 2 mg Neostigmine Methylsulfate (Neostigmine) Confirm Administered Dose 5 mg .ROUTE .STK-MED ONE Stop: 11/15/17 14:08 Ondansetron HCl (Zofran) Confirm Administered Dose 4 mg .ROUTE .STK-MED ONE Stop: 11/15/17 10:48 Ondansetron HCl (Zofran) 4 mg IVPUSH ONETIME PRN PRN Reason: Nausea/Vomiting Stop: 11/15/17 18:00 Potassium Chloride (Klor-Con M20) 40 meq PO Q4H QUINTEN Stop: 11/17/17 15:01 Last Admin: 11/17/17 14:34 Dose: 40 meq Propofol (Diprivan 20 Ml) Confirm Administered Dose 200 mg .ROUTE .STK-MED ONE Stop: 11/15/17 10:44 - Exam General: Alert, Oriented, Cooperative, No Acute Distress HEENT: Pupils Equal, Pupils Reactive, EOMI, Mucous Membr. Moist/[place] Neck: Supple, Trachea Midline, No JVD Lungs: Normal Respiratory Effort, Decreased Breath Sounds Cardiovascular: Regular Rate, Regular Rhythm GI/Abdominal Exam: Normal Bowel Sounds, Soft, Non-Tender, No Organomegaly, No Distention, No Abnormal Bruit, No Mass (Female) Exam: Other (indwelling ferreira catheter) Back Exam: Normal Inspection, Decreased Range of Motion Extremities: Normal Inspection, Normal Range of Motion, Non-Tender, Normal Capillary Refill, Other (bilateral lowere extremity non-pitting edema) Peripheral Pulses: 2+: Dorsalis Pedis (L), Dorsalis Pedis (R) Skin: Warm, Dry, Intact Wound/Incisions: Healing Well, Dressing Dry and Intact, No Drainage Neurological: Other (limited due to lack of cooperation). No: Normal Gait Psy/Mental Status: Alert, Normal Affect, Normal Mood - Problem List Review Problem List Initiated/Reviewed/Updated: Yes - My Orders Last 24 Hours: My Active Orders 11/17/17 11:37 Bisacodyl [Dulcolax] 10 mg RECTAL DAILY PRN 11/17/17 11:38 Urinary Catheter Assessment [RC] ASDIRECTED 11/17/17 11:45 Insert Ferreira Catheter [Insert Urinary Catheter] [OM.PC] Q24H 11/18/17 09:00 Hydrochlorothiazide 12.5 mg PO BIDDIURETIC 11/18/17 17:00 SODIUM,NA [CHEM] Routine 11/19/17 09:00 Bumetanide [Bumex] 0.5 mg IVPUSH ONETIME ONE Enoxaparin [Lovenox] 40 mg SUBCUT DAILY - Plan Plan:: I/P Acute: Varus Angulated Intertrochanteric Fracture Within the Left Hip - 2/2 unwitnessed fall at [facility] - Fall Precautions - hx/o recurrent falls, She is reportedly somewhat ambulatory at [facility] - S/P ORIF- IM nailing of left IT hip fx with Dr. Vieira - POD #3 - Pain management and DVT prophylaxis - NWB per Ortho - Continue PT/OT - Return to SNF tomorrow Post Operative Urinary Retention - Patient is on narcotic and she has been immobile - Ferreira catheter if indicated - D/c ferreira and bed exercises - Monitor if she can void on her own Hypernatremia - Na 156 - D/c IVF - HCTZ 12.5 mg po BID first dose now - Repeat level at 1500 Resolved: Mild Hypokalemia - K 3.4--> now 4.0 - Replete and follow daily labs Chronic: CAD Alzheimer dementia -stable but severe Bipolar disorder - stable OA Insomnia Personality disorder - stable Lower extremity edema-- monitor postoperatively Generalized muscle weakness Plan: She remains clinically stable Continue current treatment Routine AM labs Continue PT/OT in bed D/c IVF and Ferreira Catheter Repeat Sodium at 1500 IS q2 awake after surgery if patient can complete -- unable to cooperate PPI for GI ppx DVT ppx: SCDs and Lovenox SubQ Post Operative Pain Management: Narcotics and Tramadol SW for DC planning---plan back to [facility] when medically stable postoperatively Code status: DNR Her PCP is Dr. Jama at [facility] here in [place] LOS > 96 hrs pending resolution of post operative urinary retention
[2017-11-18] MEDS: ARIPiprazole 10 MG Tab PO SCH (20:32)
[2017-11-19] MEDS: Acetaminophen/oxyCODONE 325-5 MG Tab PO PRN ×2 (00:14→13:36)
[2017-11-19] MEDS: Hydrochlorothiazide 12.5 MG Cap PO SCH ×2 (06:25→14:25)
[2017-11-19] MEDS ORDERED: Bumetanide 1 MG/4 ML MDV IVPUSH ONE (09:00)
[2017-11-19] MEDS ORDERED: Enoxaparin 40 MG/0.4 ML Syringe SUBCUT SCH (09:00)
[2017-11-19] MEDS: Mupirocin Oint 22 GM Tube SCH (09:09)
[2017-11-19] MEDS: Famotidine 20 MG Tab PO SCH (09:10)
[2017-11-19] MEDS: Celecoxib 100 MG Cap PO SCH (09:10)
[2017-11-19] MEDS: traMADol 50 MG Tab PO SCH (09:10)
[2017-11-19] MEDS: Isosorbide Mononitrate 30 MG Tab.ER PO SCH (09:10)
--- NOTE | 2017-11-19 09:19 | PCM.DCSUM1 ---
Discharge Summary - Hospital Course Free Text/Narrative:: Lindsay Diaz is an 82 yo female who resides to ED today (11/14/17) via ambulance from [facility]. Patient had an unwitnessed fall and is now unable to bear weight. She does typically walk around the [facility], however now she is grabbing her left hip pain. No history of recurrent falls. She has history of dementia and heart disease. EMS gave 0.5 mg Dilaudid prior to ED arrival. In the ER a 12-lead was obtained showing normal sinus rhythm at 66 beats or minute, interpreted by the ED provider. Temp is 98.5. Pulse 66. Respirations 17. Blood pressure 144/67. Pulse ox 98 percent on room air. Labs were obtained: FVC is normal at 9.28. Hemoglobin normal at 13.6. Hematocrit 42.2. Platelets normal at 246,000. Neutrophils are elevated at 71%. There is no bandemia. She was normocytic. Sodium was normal at 144. Potassium 3.6. Chloride 107. Carbon dioxide 27. Anion gap 13.6. BUN is elevated at 27. Creatinine 0.7. EGFR greater than 60. Glucose was elevated at 141. Calcium 9.6. Bilirubin 0.8. Liver enzymes looked good with AST at 28, ALT at 35, alkaline phosphatase 72. Albumin was good at 4.1. She was typed and screened with a blood type A positive gel antibody screen negative. Hip x-ray was obtained and interpreted by Dr. De Los Santos as varus angulated intertrochanteric fracture is seen within the left hip. Joint space narrowing is seen superiorly within both hips. Only structures are osteopenic. No other acute abnormalities seen. Dr. Romo was consulted in the ED. He requested patient be admitted to the hospitalist service and he will see the patient on the floor. She does have a daughter who did not come in but can be reached via cell phone at [phone]. She carries a history of CAD, osteoarthritis, Alzheimer's dementia, bipolar disorder, generalized muscle weakness, lower extremity edema, constipation, and insomnia. She is a DNR. This is confirmed with [facility] records and the patient's daughter. She subsequently admitted to the medical floor. - Discharge Data Discharge Date: 11/19/17 (admit date 11/14/17) Discharge Disposition: DC/Tfer to SNF 03 Condition: Fair - Discharge Diagnosis/Problem(s) (1) Hip fracture, left SNOMED Code(s): 221147643 ICD Code: S72.002A - FRACTURE OF UNSP PART OF NECK OF LEFT FEMUR, INIT Status: Acute Priority: High Current Visit: Yes Qualifiers: Encounter type: initial encounter Fracture type: closed Qualified Code(s) : S72.002A - Fracture of unspecified part of neck of left femur, initial encounter for closed fracture (2) Dementia SNOMED Code(s): 20725858 ICD Code: F03.90 - UNSPECIFIED DEMENTIA WITHOUT BEHAVIORAL DISTURBANCE Status: Chronic Priority: High Current Visit: Yes Qualifiers: Dementia type: Alzheimer's disease Alzheimer's disease onset: unspecified onset Dementia behavioral disturbance: without behavioral disturbance Qualified Code(s): G30.9 - Alzheimer's disease, unspecified; F02.80 - Dementia in other diseases classified elsewhere without behavioral disturbance; F02.80 - Dementia in other diseases classified elsewhere without behavioral disturbance; F02.80 - Dementia in other diseases classified elsewhere without behavioral disturbance (3) Lower extremity edema SNOMED Code(s): 372506538 ICD Code: R60.0 - LOCALIZED EDEMA Status: Chronic Priority: Medium Current Visit: Yes (4) Bipolar disorder SNOMED Code(s): 63342773 ICD Code: F31.9 - BIPOLAR DISORDER, UNSPECIFIED Status: Chronic Priority : Low Current Visit: No Qualifiers: Active/Remission status: remission status unspecified Qualified Code(s): F31.9 - Bipolar disorder, unspecified (5) CAD (coronary artery disease) SNOMED Code(s): 12990059 ICD Code: I25.10 - ATHSCL HEART DISEASE OF [place] CORONARY ARTERY W/O ANG PCTRS Status: Chronic Priority: Low Current Visit: No Qualifiers: Coronary Disease-Associated Artery/Lesion type: [place] artery [place] vs. transplanted heart: [place] heart Associated angina: without angina Qualified Code(s): I25.10 - Atherosclerotic heart disease of [place] coronary artery without angina pectoris (6) Hypokalemia SNOMED Code(s): 03614215 ICD Code: E87.6 - HYPOKALEMIA Status: Resolved Priority: High Current Visit: Yes - Patient Summary/Data Operative Procedure(s) Performed: ORIF left hip with Dr. Vieira Complications: None Consults: Consultations 11/14/17 15:51 Consult to Case Management [CONS] Routine Consult to Physician [CONS] Routine Consult to Staff Nuclear Weapons Officer [CONS] Routine Consult to Spiritual Care [CONS] Routine OT Evaluation and Treatment [CONS] Routine PT Evaluation and Treatment [CONS] Routine Labs Pending at D/C: None Recommended Follow-up Testing/Procedures: Patient DC instructions: physical and occupational therapy to treat and evaluate Non-weight bearing status Suture removal in 10 days Follow up with Dr. Vieira in 2 weeks Dressing change to left hip PRN Planned Operative Procedure(s) after DC: None Hospital Course: I/P Acute: Varus Angulated Intertrochanteric Fracture Within the Left Hip - 2/2 unwitnessed fall at SNF; Fall Precautions - hx/o recurrent falls, She is reportedly ambulatory at SNF - S/P ORIF- IM nailing of left IT hip fx with Dr. Vieira - POD #4 - Pain management and DVT prophylaxis - NWB per Ortho - Continue PT/OT - Return to SNF today Post Operative Urinary Retention--resolved; voiding, incontinent, s/p ferreira removal - Patient is on narcotic and she has been immobile - Ferreira catheter if indicated - D/c ferreira and bed exercises - Monitor if she can void on her own Resolved: Mild Hypokalemia - K 3.4--> now 4.0 - Replete and follow daily labs Hypernatremia---resolved - Na 156 - D/c IVF - HCTZ 12.5 mg po BID first dose now - Repeat level at 1500 Chronic: CAD Alzheimer dementia -stable but severe Bipolar disorder - stable OA Insomnia Personality disorder - stable Lower extremity edema-- monitor postoperatively Generalized muscle weakness Plan: She remains clinically stable Continue PT/OT in bed D/c IVF and Ferreira Catheter IS q2 awake after surgery if patient can complete -- unable to cooperate H2 for GI ppx DVT ppx: SCDs and Lovenox SubQ---ASA on DC BID Post Operative Pain Management: Narcotics and Tramadol SW for DC planning---plan back to NH/SNF when medically stable postoperatively-- -plans for DC back to [facility] today. Code status: DNR Her PCP is Dr. Jama at [facility] here in [place] LOS > 96 hrs pending resolution of post operative urinary retention - Patient Instructions Diet: Heart Healthy Diet, Drink 8-10+ Glasses/Day Activity: As Tolerated (NWB to left hip, PT/OT to continue) Driving: Do Not Drive Showering/Bathing: May Shower Notify Provider of: Fever, Increased Pain, Swelling and Redness, Drainage - Discharge Plan Prescriptions/Med Rec: Acetaminophen/oxyCODONE [Percocet 325-5 MG] 1 tab PO Q4H PRN #30 tablet PRN Reason: Pain (Moderate 4-6) Aspirin 325 mg PO BID #84 tab Famotidine [Pepcid] 20 mg PO BID #60 tablet Hydrochlorothiazide 12.5 mg PO BIDDIURETIC #30 cap Home Medications: Home Meds ARIPiprazole [Abilify] 12.5 mg PO BEDTIME 11/14/17 [History] Acetaminophen 650 mg PO TID PRN 11/14/17 [History] Bisacodyl [Dulcolax] 10 mg RC DAILY PRN 11/14/17 [History] Docusate Sodium/Sennosides [Senna Plus] 1 tab PO DAILY PRN 11/14/17 [History] Furosemide 80 mg PO DAILY 11/14/17 [History] Isosorbide Mononitrate [Imdur] 15 mg PO DAILY 11/14/17 [History] Mag Hydrox/Al Hydrox/Simeth [Maalox Maximum Strength Susp] 15 ml PO Q4HR PRN 08/22 [History] traMADol [Ultram] 50 mg PO BID 11/14/17 [History] Acetaminophen [Tylenol] 650 mg PO Q4H PRN tablet 11/19/17 [Rx] Acetaminophen/oxyCODONE [Percocet 325-5 MG] 1 tab PO Q4H PRN #30 tablet [Rx] Aspirin 325 mg PO BID #84 tab 11/19/17 [Rx] Bisacodyl [Dulcolax] 5 mg PO DAILY PRN tablet 11/19/17 [Rx] Docusate Sodium [Colace] 100 mg PO BID PRN cap 11/19/17 [Rx] Famotidine [Pepcid] 20 mg PO BID #60 tablet 11/19/17 [Rx] Hydrochlorothiazide 12.5 mg PO BIDDIURETIC #30 cap 11/19/17 [Rx] Polyethylene Glycol 3350 [MiraLAX] 17 gm PO DAILY PRN packet 11/19/17 [Rx] Patient Handouts: Hip Fracture Forms: ED Department Discharge Referrals: PCP,None [Primary Care Provider] - - Discharge Summary/Plan Comment DC Time >30 min.: Yes (45 min) - General Info Date of Service: 11/19/17 Admission Dx/Problem (Free Text: Admission Diagnosis/Problem Admission Diagnosis/Problem Hip fracture requiring operative repair POD #4 ORIF left hip Pain controlled VSS; labs stable Plan for DC back to [facility] today Functional Status: Reports: Pain Controlled, Tolerating Diet, Urinating. Denies : Ambulating - Review of Systems Pulmonary: Denies: Shortness of Breath Cardiovascular: Denies: Chest Pain Gastrointestinal: Denies: Abdominal Pain Systems Review Comment: ROS unable to obtain/determine due to end stage/severe dementia - Patient Data Vitals - Most Recent: Last Vital Signs Temp 99.1 F 11/19/17 07:32 Pulse 69 11/19/17 07:32 Resp 18 11/19/17 07:32 BP 136/87 11/19/17 09:10 Pulse Ox 97 11/19/17 07:32 Weight - Most Recent: 144 lb 8 oz I&O - Last 24 hours: Intake & Output 11/18/17 11/19/17 11/19/17 22:59 06:59 14:59 Intake Total 1170 100 Output Total 2004 Balance -835 100 Lab Results - Last 24 hrs: Laboratory Results - last 24 hr 11/18/17 11/19/17 Range/Units 17:39 08:51 WBC 8.16 (3.98-10.04) K/mm3 RBC 4.13 (3.98-5.22) M/mm3 Hgb 12.0 (11.2-15.7) gm/L Hct 37.5 (34.1-44.9) % MCV 90.8 (79.4-94.8) fl MCH 29.1 (25.6-32.2) pg MCHC 32.0 L (32.2-35.5) g/dl RDW Std Deviation 45.1 (36.4-46.3) fL Plt Count 273 (182-369) K/mm3 MPV 10.1 (9.4-12.3) fl Neut % (Auto) 66.1 (34.0-71.1) % Lymph % (Auto) 16.9 L (19.3-51.7) % [place] % (Auto) 11.9 (4.7-12.5) % Eos % (Auto) 4.8 (0.7-5.8) Baso % (Auto) 0.2 (0.1-1.2) % Neut # (Auto) 5.39 (1.56-6.13) K/mm3 Lymph # (Auto) 1.38 (1.18-3.74) K/mm3 [place] # (Auto) 0.97 H (0.24-0.36) K/mm3 Eos # (Auto) 0.39 H (0.04-0.36) K/mm3 Baso # (Auto) 0.02 (0.01-0.08) K/mm3 Sodium 141 (136-145) mEq/L Med Orders - Current: Current Medications Acetaminophen (Tylenol) 650 mg PO Q4H PRN PRN Reason: Pain (Mild 1-3)/fever Last Admin: 11/18/17 03:27 Dose: 650 mg Albuterol/Ipratropium (Duoneb 3.0-0.5 Mg/3 Ml) 3 ml NEB Q4H PRN PRN Reason: Shortness Of Breath/wheezing Aripiprazole (Abilify) 12.5 mg PO BEDTIME [facility] Last Admin: 11/18/17 20:32 Dose: 12.5 mg Bisacodyl (Dulcolax) 5 mg PO DAILY PRN PRN Reason: Constipation Last Admin: 11/17/17 00:13 Dose: 5 mg Bisacodyl (Dulcolax) 10 mg RECTAL DAILY PRN PRN Reason: Constipation Last Admin: 11/17/17 12:56 Dose: 10 mg Celecoxib (Celebrex) 200 mg PO DAILY [facility] Last Admin: 11/19/17 09:10 Dose: 200 mg Docusate Sodium (Colace) 100 mg PO BID PRN PRN Reason: Constipation Enoxaparin Sodium (Lovenox) 40 mg SUBCUT DAILY [facility] Last Admin: 11/19/17 09:12 Dose: 40 mg Famotidine (Pepcid) 20 mg PO BID [facility] Last Admin: 11/19/17 09:10 Dose: 20 mg Furosemide (Lasix) 80 mg PO DAILY [facility] Last Admin: 11/17/17 08:50 Dose: 80 mg Hydrochlorothiazide (Hydrochlorothiazide) 12.5 mg PO BIDDIURETIC [facility] Stop: 11/20/17 21:00 Last Admin: 11/19/17 06:25 Dose: 12.5 mg Hydromorphone HCl (Dilaudid) 0.25 mg IVPUSH Q4H PRN PRN Reason: severe pain Last Admin: 11/18/17 18:11 Dose: 0.25 mg Isosorbide Mononitrate (Imdur) 15 mg PO DAILY [facility] Last Admin: 11/19/17 09:10 Dose: 15 mg Magnesium Sulfate (Pharmacy To Dose - Magnesium Replacement) 0 dose .XX ASDIRECTED PRN PRN Reason: RX TO WATCH MAG LEVELS Mupirocin (Bactroban Oint) 2 gm .XX BID [facility] Stop: 11/19/17 22:01 Last Admin: 11/19/17 09:09 Dose: 1 applic Ondansetron HCl (Zofran Odt) 4 mg PO Q6H PRN PRN Reason: nausea, able to take PO Ondansetron HCl (Zofran) 4 mg IV Q6H PRN PRN Reason: Nausea/Vomiting Oxycodone/Acetaminophen (Percocet 325-5 Mg) 1 tab PO Q4H PRN PRN Reason: Pain (moderate 4-6) Last Admin: 11/19/17 00:14 Dose: 1 tab Polyethylene Glycol (Miralax) 17 gm PO DAILY PRN PRN Reason: Constipation Last Admin: 11/16/17 16:03 Dose: 17 gm Potassium Chloride (Pharmacy To Dose - Potassium Replacement) 0 dose .XX ASDIRECTED PRN PRN Reason: RX TO WATCH K LEVELS Senna/Docusate Sodium (Senna Plus) 1 tab PO BID PRN PRN Reason: Constipation Tramadol HCl (Ultram) 50 mg PO BID [facility] Last Admin: 11/19/17 09:10 Dose: 50 mg Discontinued Medications Albuterol (Proventil Neb Soln) 2.5 mg NEB TID [facility] Last Admin: 11/18/17 10:07 Dose: Not Given Bumetanide (Bumex) 0.5 mg IVPUSH DAILY [facility] Bumetanide (Bumex) 0.5 mg IVPUSH BID [facility] Last Admin: 11/15/17 09:20 Dose: Not Given Bumetanide (Bumex) 1 mg IVPUSH ONETIME ONE Stop: 11/18/17 08:11 Last Admin: 11/18/17 09:17 Dose: 1 mg Bumetanide (Bumex) 0.5 mg IVPUSH ONETIME ONE Stop: 11/19/17 09:01 Last Admin: 11/19/17 09:09 Dose: 0.5 mg Cefazolin Sodium (Ancef) Confirm Administered Dose 2 gm .ROUTE .STK-MED ONE Stop: 11/15/17 12:24 Dexamethasone (Dexamethasone) Confirm Administered Dose 20 mg .ROUTE .STK-MED ONE Stop: 11/15/17 10:48 Enoxaparin Sodium (Lovenox) 30 mg SUBCUT DAILY [facility] Last Admin: 11/18/17 08:42 Dose: 30 mg Enoxaparin Sodium (Lovenox) 30 mg SUBCUT ONETIME ONE Stop: 11/17/17 13:08 Last Admin: 11/17/17 14:34 Dose: 30 mg Ephedrine Sulfate (Ephedrine In Ns) Confirm Administered Dose 25 mg .ROUTE .STK- MED ONE Stop: 11/15/17 13:25 Fentanyl (Sublimaze) Confirm Administered Dose 250 mcg .ROUTE .STK-MED ONE Stop: 11/15/17 10:44 Fentanyl (Sublimaze) 50 mcg IVPUSH Q5M PRN PRN Reason: Pain Stop: 11/15/17 16:00 Furosemide (Lasix) 40 mg IVPUSH NOW ONE Stop: 11/14/17 16:17 Last Admin: 11/14/17 16:52 Dose: 40 mg Glycopyrrolate () Confirm Administered Dose 1 mg .ROUTE .STK-MED ONE Stop: 11/15/17 14:08 Hydromorphone HCl (Dilaudid) 0.5 mg IVPUSH ONETIME ONE Stop: 11/14/17 11:57 Last Admin: 11/14/17 12:04 Dose: 0.5 mg Hydromorphone HCl (Dilaudid) Confirm Administered Dose 1 mg .ROUTE .STK-MED ONE Stop: 11/15/17 13:06 Hydromorphone HCl (Dilaudid) 0.25 mg IVPUSH Q15M PRN PRN Reason: Pain (severe 7-10) Stop: 11/15/17 14:19 Sodium Chloride (Normal Saline) 1,000 mls @ 250 mls/hr IV ONETIME ONE Stop: 11/14/17 15:55 Last Admin: 11/14/17 12:06 Dose: 250 mls/hr Sodium Chloride (Normal Saline) 1,000 mls @ 75 mls/hr IV ASDIRECTED [facility] Stop: 11/15/17 05:19 Potassium Chloride 10 meq/ (Premix) 100 mls @ 100 mls/hr IV Q1H [facility] Stop: 11/15/17 14:14 Last Admin: 11/15/17 16:49 Dose: 100 mls/hr Sodium Chloride (Normal Saline) 1,000 mls @ 50 mls/hr IV ASDIRECTED [facility] Last Admin: 11/18/17 07:59 Dose: 50 mls/hr Lactated Ringer's (Ringers, Lactated) Confirm Administered Dose 1,000 mls @ as directed .ROUTE .STK-MED ONE Stop: 11/15/17 13:06 Lactated Ringer's (Ringers, Lactated) Confirm Administered Dose 1,000 mls @ as directed .ROUTE .STK-MED ONE Stop: 11/15/17 13:06 Cefazolin Sodium/Dextrose 1 gm (/ Premix) 50 mls @ 100 mls/hr IV Q6H [facility] Stop: 11/16/17 12:59 Last Admin: 11/16/17 13:00 Dose: 100 mls/hr Sodium Chloride (Normal Saline) 500 mls @ 500 mls/hr IV .BOLUS ONE Stop: 11/16/17 10:14 Last Admin: 11/16/17 09:35 Dose: 500 mls/hr Iodine (Iodine 2% Mild Tincture) Confirm Administered Dose 30 ml .ROUTE .STK- MED ONE Stop: 11/15/17 09:51 Last Admin: 11/15/17 13:02 Dose: 12 ml Morphine Sulfate (Morphine) 2 mg IVPUSH Q2H PRN PRN Reason: Pain (severe 7-10) Stop: 11/15/17 15:54 Last Admin: 11/15/17 09:20 Dose: 2 mg Neostigmine Methylsulfate (Neostigmine) Confirm Administered Dose 5 mg .ROUTE .STK-MED ONE Stop: 11/15/17 14:08 Ondansetron HCl (Zofran) Confirm Administered Dose 4 mg .ROUTE .STK-MED ONE Stop: 11/15/17 10:48 Ondansetron HCl (Zofran) 4 mg IVPUSH ONETIME PRN PRN Reason: Nausea/Vomiting Stop: 11/15/17 18:00 Potassium Chloride (Klor-Con M20) 40 meq PO Q4H QUINTEN Stop: 11/17/17 15:01 Last Admin: 11/17/17 14:34 Dose: 40 meq Propofol (Diprivan 20 Ml) Confirm Administered Dose 200 mg .ROUTE .STK-MED ONE Stop: 11/15/17 10:44 - Exam Quality Assessment: Reports: DVT Prophylaxis General: Reports: Alert, No Acute Distress. Denies: Oriented HEENT: Reports: Pupils Equal, Mucous Membr. Moist/[place] Neck: Reports: Supple Lungs: Reports: Clear to Auscultation, Normal Respiratory Effort, Decreased Breath Sounds (bases) Cardiovascular: Reports: Regular Rate, Regular Rhythm GI/Abdominal Exam: Normal Bowel Sounds, Soft Rectal (Female) Exam: Deferred Extremities: Other (dressing CDI to lt hip) Neurological: Reports: Other (confused; severe dementia- baseline) Psy/Mental Status: Reports: Other (confused; severe dementia) *Q Meaningful Use (DIS) - VTE *Q VTE Criteria *Q: - Stroke *Q Stroke Criteria *Q: - AMI *Q AMI Criteria *Q:
--- NOTE | 2017-11-20 07:20 | PN ---
CONSULTING PHYSICIAN: Sedrick Vieira MD DATE OF CONSULTATION: 11/19/2017 POSTOPERATIVE NOTE DATE OF SURGERY: 11/15/2017. HISTORY: This is an 82-year-old female, who underwent an intramedullary fixation of a proximal fracture of the left femur on 11/15/2017 with an intramedullary mark anthony or Gamma Nail. The patient is now stable. Dressing changes have been going through the hospital stay since her surgery. Her postoperative condition has remained unchanged. She currently is able to be moved with minimal pain reaction in and around the hip area. The patient still has severe dementia, and her overall status will be nonweightbearing. PHYSICAL EXAMINATION: SKIN: The left hip reveals surgical incisions intact. No signs of infection. Dressing changes are going well. OVERALL IMPRESSION: Intertrochanteric fracture of the left hip with intramedullary mark anthony/Gamma Nail. PLAN: 1. For the patient to be discharged to the retirement to continue convalescence. 2. To continue daily dressing changes as needed for any drainage of the left hip. 3. To continue nonweightbearing status due to her dementia. 4. Scheduled to have skin sutures removed in 10 days at the retirement. 5. Return to the orthopedic clinic in two weeks with the pre-clinic x-rays of the left hip when she comes in to the clinic. ROSCOE /[id number]
== END 2017-11-19 14:10 | DRG 481 ==
LOC: JD.ED 11:38 → JD.MS 13:42
PROVIDERS: ADMIT Internal Medicine; ATTEND Internal Medicine
PROC: 0QS704Z Reposition Left Upper Femur with Internal Fixation Device, Open Approach (ICD-10-PCS; principal; 2017-11-15)
DX: S72.002A Fracture of unspecified part of neck of left femur, initial encounter for closed fracture (principal); S72.142A Displaced intertrochanteric fracture of left femur, initial encounter for closed fracture; E87.0 Hyperosmolality and hypernatremia; W19.XXXA Unspecified fall, initial encounter; F03.90 Unspecified dementia, unspecified severity, without behavioral disturbance, psychotic disturbance, mood disturbance, and anxiety; Y92.129 Unspecified place in nursing home as the place of occurrence of the external cause; E87.6 Hypokalemia; G30.9 Alzheimer's disease, unspecified; F02.80 Dementia in other diseases classified elsewhere, unspecified severity, without behavioral disturbance, psychotic disturbance, mood disturbance, and anxiety; G47.00 Insomnia, unspecified; F60.9 Personality disorder, unspecified; F31.9 Bipolar disorder, unspecified; M19.90 Unspecified osteoarthritis, unspecified site; R60.0 Localized edema; I25.10 Atherosclerotic heart disease of native coronary artery without angina pectoris; M62.81 Muscle weakness (generalized); Z66 Do not resuscitate; Z88.8 Allergy status to other drugs, medicaments and biological substances; Z79.899 Other long term (current) drug therapy; R33.8 Other retention of urine
CPT/HCPCS: 36415; 71046; 73501; 80053; 85025; 86850; 86900; 86901; 93005; 96361; 96374; 99285; J1170; J7040; 01210; 51701; 51702; 76000; 76000-26; 80048; 83735; 83880; 84295; 85610; 85730; 87641; 94640; 94760; 94761; 97110-GP; 97161-GP; 97167-GO; 99284; A9270-GY; C1713; C1776; J0690; J1100; J1650; J1940; J2270; J2405; J2704; J2710; J3010; J3480; J7050; J7120